=== PATIENT | male | born 1940 | race Caucasian/White ===

== ENCOUNTER 2022-12-09 11:46 | Outpatient (CLI) | payer MEDICARE, SELFPAY ==
--- NOTE | 2022-12-09 13:29 | W.ANESCHARGE ---
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
--- NOTE | 2022-12-09 15:10 | W.ANESCHARGE ---
Anesthesia Charges Start Date/Time Anesthesia Start Date: 12/09/22 Anesthesia Start Time: 13:05 Stop Date/Time Anesthesia Stop Date: 12/09/22 Anesthesia Stop Time: 13:25 Summary Extremes of Age - Over 70 or under 1: MDA
== END 2022-12-09 11:47 | disposition home or self-care (01) ==
LOC: OP CLINIC 11:51
PROVIDERS: PCP Family Medicine; Visit Provider Internal Medicine Gastroenterology
DX: K92.2 Gastrointestinal hemorrhage, unspecified (principal); K57.10 Diverticulosis of small intestine without perforation or abscess without bleeding; K26.4 Chronic or unspecified duodenal ulcer with hemorrhage
CPT/HCPCS: 00731; 43239; 88305; 99100; J2704; J3490

== ENCOUNTER 2024-08-29 07:47 | Emergency (ER) | payer MEDICARE, SELFPAY ==
--- OUTSIDE RECORDS SUMMARY | 2011-05-30 09:10 | XMS_ITS | Continuity of Care Document ---
Author Organization [facility] Address [address] [address] [place] [address] Phone Care Team Providers Care Bag Shaker Name Role Phone Unavailable Unavailable Unavailable Advance Directives Directive Yes / No Effective Date File Name No Information Encounters Encounter Description Practice Location Reason(s) For Visit Diagnoses Date Provider Providers Copied on Encounter [facility], [address] [address], [place], [place], [id number], [place] tel:[phone] [facility] No Information May-2 2201 2 No Information Family History Family Member Type Diagnosis Age At Onset No Information Payers Payer name Insurance type Covered republican ID Authoriza tion(s) No Information Social History Type Description Quantity Date Captured Comments Sex Male Smoking Status No Information Chief Complaint And Reason For Visit No Information Reason For Referral Reason For Referral No Information History Of Present Illness Encounter Date Complaint History Of Prese nt Illness No Information Functional Status Date Functional Assessmen t No Information Instructions Date Instruction Additional Infor mation No Information Assessments Type Assessment Date No Information Patient Care Teams Name Effective Dates (start - stop) Status Members No Information
--- OUTSIDE RECORDS SUMMARY | 2011-05-30 09:10 | XMS_ITS | Continuity of Care Document ---
Author Organization [facility] Address [address] [address] [place] [address] Phone Care Team Providers Care Caterpillar Operator Name Role Phone Unavailable Unavailable Unavailable Advance Directives Directive Yes / No Effective Date File Name No Information Encounters Encounter Description Practice Location Reason(s) For Visit Diagnoses Date Provider Providers Copied on Encounter [facility], [address] [address], [place], [place], [id number], [place] tel:[phone] [facility] No Information May-2 2201 2 No Information Family History Family Member Type Diagnosis Age At Onset No Information Payers Payer name Insurance type Covered constitution party ID Authoriza tion(s) No Information Social History [...]
--- OUTSIDE RECORDS SUMMARY | 2014-09-05 04:05 | XMS_ITS | Continuity of Care Document ---
Author Organization [facility] Address [address], [address] [place] [address] Phone Care Team Providers Care Track Watchman Name Role Phone Chris Puentes MD Unavailable Unavailable Allergies, Adverse Reactions, Alerts Substance Reaction Status Criticality penicillin G Active No Information Medications Medication Instructions Dosage Effective Dates (start - stop) Status Comments Aspir-81 81 mg tablet,delayed release take 1 tablet by oral route every day - Active Procedures Procedure Date Inj Anes Epidur; Lumb/sac 1 Le 15 Epidurography Rad S&i Adverse Events did not occur Patient without preop order for prophyla ctic IV an Inj Anes Epidur; Lumb/sac 1 Le 15 Epidurography Advance Directives Directive Yes / No Effective Date File Name No Information Encounters Encounter Description Practice Location Reason(s) For Visit Diagnoses Date Provider Providers Copied on Encounter [facility], [address], [address], [place], [address], [place] tel:[phone] [facility] No Information 5 Deloris Perez. [address], [place], [place], [address] , [place]. tel:[phone] Referring Provider: Chris Galeano, [address], [place], [address] . tel:[phone] [facility], [address], [place], [place], [id number], [place] tel:[phone] [facility] [place] No Information 5 Puentessagar Perez. [address], [place], [place], [address] , [place]. tel:[phone] Referring Provider: Didi Chavez, [address], [place], [address]. Family History Family Member Type Diagnosis Age At Onset No Information Payers Payer name Insurance type Covered alliance party ID Roxi hua(s) Medicare Part B [place] [id number] [facility] Medicare BL [id number] Social History Type Description Quantity Date Captured Comments Alcohol Use Details 1 beer daily Caffeine Use Details coffee 1 cup per day Tobacco Use Status Occasional cigarette smoker Smoking Status Current some day smoker Smoking Tobacco Use Details Cigarette: No Details Available Cigarette: No Details Available Sex Male Vital Signs Date / Time: Height Weight BMI Pulse Rate Blood Pressure Temperature Respiratory Rate Body Surface Area Head Circumference Head Circ. Percentile Wt./Kenny. Percentile BMI percentile Pulse Ox Inhaled Ox 8:26 AM 88 /min 173/89 mm[Hg] 89 % 8:50 AM 94 /min 174/92 mm[Hg] 99 % 8:56 AM 95 /min 167/96 mm[Hg] 96 % 9:02 AM 88 /min 189/92 mm[Hg] 95 % 9:08 AM 83 /min 151/89 mm[Hg] 97 % Chief Complaint And Reason For Visit No Information Reason For Referral Reason For Referral No Information History Of Present Illness Encounter Date Complaint History Of Prese nt Illness No Information Functional Status Date Functional Assessmen t Pain Score 0/10 Instructions Date Instruction Additional Infor mation No Information Assessments Type Assessment Date No Information Patient Care Teams Name Effective Dates (start - stop) Status Members No Information
--- OUTSIDE RECORDS SUMMARY | 2014-09-05 04:05 | XMS_ITS | Continuity of Care Document ---
Author Organization [facility] Address [address], [address] [place] [address] Phone Care Team Providers Care Reacher Name Role Phone Chris Puentes MD Unavailable [...] Diagnoses Date Provider Providers Copied on Encounter [facility], [address], [address], [place], [address], [place] tel:[phone] [facility] No Information 5 Deloris Perez. [address], [place], [place], [address] , [place]. tel:[phone] Referring Provider: Chris Galeano, [address], [place], [address] . tel:[phone] [facility], [address], [place], [place], [address], [place] tel:[phone] [facility] [address] [place] No Information 5 Puentessagar Perez. [address], [place], [place], [address] , [place]. tel:[phone] Referring Provider: Didi Chavez, [address], [place], [address]. Family History Family Member Type Diagnosis Age At Onset No Information Payers Payer name Insurance type Covered green party ID Roxi hua(s) Medicare Part B [place] [id number] [facility] Medicare BL [id number] Social History Type Description Quantity Date Captured [...]
--- OUTSIDE RECORDS SUMMARY | 2024-03-18 05:45 | XMS_ITS | Encounter Summary ---
Author Name [facility] Organization [facility] Address [address] [place] [address] Support Name Relationship Address Phone RIOS MAYERS Next of Kin [address] [place] [address] LAVERN CORTEZ Emergency Contact [address] [place] [address] Insurance Providers: All historical and current Section Date Range: From patient's date of to the date document was created. This section includes the names of all active insurance providers for the patient. Insurance Provider Type of Coverage Plan Name Start of Policy Coverage End of Policy Coverage Group Number Member ID Insurance Provider's Telephone Number Policy Sevilla's Name Patient's Relationship to Policy Sevilla [facility] MCR (WNR) MEDICARE ADVANTAGE MCR (WNR) Mar 10, 2018 [id number] [phone] BESS MAYERS PATIENT Selected Encounter This section includes the information on record at [place] for the Encounter. Date/Time Encounter Type Encounter Description Reason Provider Source Mar 18, 2024 10:45 AM HEARING AID FITTING/CHECKING AUDIOLOGY ICD-10-CM Z01.118 Encntr for exam of ears and hearing w oth abnormal findings PABLO CASTREJON Encounter Template Text not used by [place] Assessments - Encounter Diagnoses This section includes the primary and secondary diagnoses documented for the Encounter. Date/Time Primary/Secondary Diagnosis Diagnosis Name Provider Source Mar 18, 2024 12:03 PM PRIMARY Encntr for exam of ears and hearing w oth abnormal findings PAOLA CASTREJON [facility] Mar 18, 2024 12:03 PM SECONDARY Encounter for fitting and adjustment of hearing aid PAOLA CASTREJON [facility] Mar 18, 2024 12:03 PM SECONDARY Sensorineural hearing loss, bilateral ELAINEPAOLA DAVIS MICHAELNADEEM Logan [facility] Mar 18, 2024 12:03 PM SECONDARY Tinnitus, bilateral PAOLA CASTREJON [facility] Plan of Treatment: Future Appointments (+ 6 months) and Future Tests (+/- 45 days) The Plan of Treatment section includes future care activities for the patient [facility] This section includes future appointments and future orders which are active, pending or scheduled. Future Appointments This section includes appointments that were scheduled to occur 6 months from the date of the Encounter, up to a maximum of 20 appointments. The data comes from all [place] treatment facilities. Appointment Date/Time Appointment Type Appointme nt Facility Name Apr 15, 2024 10:45 AM AMBULATORY - SURGERY [facility] Social History: Smoking Status (Most current) and Tobacco Use (All prior to encounter date) This section includes the most current, and the historical, smoking and tobacco- related health factors from the [place] facility where the Encounter took place. Current Smoking Status This section includes the most current smoking, or tobacco-related health factor, from the [place] facility where the Encounter took place. Date/Time Current Smoking Status Comment Facil ity Jun 26, 2009 11:49 AM FORMER TOBACCO USER 7Y OR GREATE R [facility] Encounter Notes: All associated encounter notes This section contains the clinical notes associated to the Encounter. Date/Time Encounter Note(s) Provider Source Mar 18, 2024 07:24 AM AUDIOLOGY NOTE: LOCAL TITLE: AUDIOLOGY CLINIC NOTE STANDARD TITLE: AUDIOLOGY NOTE DATE OF NOTE: MAR 18, 2024@07:24 ENTRY DATE: MAR 18, 2024@07:24:19 AUTHOR: XENIA CASTREJON COSIGNER: URGENCY: STATUS: COMPLETED SUBJECT: HEARING EVALUATION DIAGNOSIS: BILATERAL SENSORINEURAL HEARING LOSS, BILATERAL TINNITUS REASON FOR VISIT: THERAPEUTIC: HEARING AID EVALUATION, 60 minutes. was seen in this clinic today for a hearing evaluation. Mulberry is service connected for hearing loss/tinnitus. was unaccompanied today. SUBJECTIVE/HISTORY: Mulberry presented today for an updated hearing evaluation and new hearing aid selection. He noted he had a hearing test completed in January at [facility] by Dr. 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 He noted his hearing has changed gradually over the past few years and also reported a TIA this Summer. Mulberry reported intermittent otalgia deep in both ears, more right, for the past month or so. He was recently seen by ENT at [facility] whom reported no abnormal ear or sinus findings. Mulberry denied aural pressure and drainage, as well as dizziness. He denied a change in his intermittent, bilateral tinnitus. Elected to complete air and bone conduction today and compare to 01/19/2024 test. Hearing aids, right/left, fit 04/28/2018: Make: Resound Model: Linx Quattro 61 Style: Rechargeable EMELY Serial #: [id number] Acoustics: 3MP, encased molds OBJECTIVE/PROCEDURES: AUDIOMETRICS: Air conduction, Bone conduction Transducer: Inserts Reliability: Good *See results via Audiogram display under Tools->Audiology->ROES or see [facility] database. OTOSCOPY: Right: minimal non-occluding cerumen and normal appearing tympanic membrane. Left: minimal non-occluding cerumen and normal appearing tympanic membrane. TYMPANOMETRY: RIGHT EAR: Type A Pressure: Normal Compliance: Normal Volume: Normal LEFT EAR: Type A Pressure: Normal Compliance: Normal Volume: Normal /// Speech testing results are from Dr. Stack's results on 01/19/2024: SPEECH RECOGNITION THRESHOLD (SRT): Spondees Right: 65 dB HL Left: 55 dB HL Pure tone results were consistent with speech national park ranger thresholds. WORD RECOGNITION: Recorded/W-22 word list Right Ear: 60% Level: 95* dB Left Ear: 40% Level: 90* dB /// SUMMARY: Hearing is stable when compared to the previous evaluation completed on 01/19/2024 at [facility] by Dr Stack. RIGHT EAR: Mild sloping to severe sensorineural hearing loss. Type A tympanogram consistent with normal tympanic membrane/middle ear mobility. LEFT EAR: Mild sloping to severe sensorineural hearing loss. Type A tympanogram consistent with normal tympanic membrane/middle ear mobility. ACTION/AMPLIFICATION: - Mulberry was counseled on their type, degree and configuration of hearing loss. - is a good candidate for hearing aid use. - Different styles/technologies were reviewed with consideration given to Mulberry's listening situations and lifestyle needs. - The Mulberry has good vision, memory, and dexterity for hearing aid use. Did not take new earmold impressions because is very happy with the current fit. - Hearing aids ordered: Resound Nexia 60 mRIC R (color: 75, 3MP, embedded molds) Mulberry utilizes and iPhone and has his current aids connected. HEARING AID CHECK/SERVICE/PROGRAMMING : - Hearing aids cleaned and checked. Biologic listening check revealed good sound quality. Filters replaced, microphones brushed. - Aids connected to software and programmed to today's hearing evaluation. Mulberry noted good sound quality. PLAN: - Mulberry will be scheduled for a 60-minute hearing aid fitting appointment. - is in agreement with this plan. Suicide Screen: C-SSRS Screening [place]-Suicide Severity Rating Scale (C-SSRS Screener) 1. Over the past month, have you wished you were or wished you could go to sleep and not wake up? No 2. Over the past month, have you had any actual thoughts of killing yourself? No 3. Over the past month, have you been thinking about how you might do this? Response not required due to responses to other questions. 4. Over the past month, have you had these thoughts and had some intention of acting on them? Response not required due to responses to other questions. 5. Over the past month, have you started to work out or worked out the details of how to kill yourself? Response not required due to responses to other questions. 6. If yes, at any time in the past month did you intend to carry out this plan? Response not required due to responses to other questions. 7. In your lifetime, have you ever done anything, started to do anything, or prepared to do anything to end your life (for example, collected pills, obtained a gun, gave away valuables, went to the roof but didn't jump)? No 8. If YES, was this within the past 3 months? Response not required due to responses to other questions. /lissett/ XENIA CASTREJON Clinical Lab Clerk Signed: 03/18/2024 12:03 XENIA CASTREJON [facility]
--- OUTSIDE RECORDS SUMMARY | 2024-04-15 05:45 | XMS_ITS | Continuity of Care Document ---
Author Name [facility] Organization [facility] Care Team Providers Care Certified Health Education Specialist Name Role Phone [facility] Unavailable Unavailable Problems Combined list of problems from [facility] and [facility] facilities. It does not include entries that were removed or entered in error. Problem Status Onset Date Problem Type Date of Resolution Comments Source Hearing Loss, Partial * (ICD-9-CM 389.9) Active Condition [facility] Insect Stings (ICD-9-CM E905.5/989.5) Active Condition Jun 26, 2009 Entered By: DEEP ROSA Comment: Bee stings-thro at [facility] Psoriasis * (ICD-9-CM 696.1) Active Condition [facility] Tinnitus * (ICD-9-CM 388.30) Active Condition [facility] Diagnosis: ICD-10-CM H90.3 Sensorineural hearing loss, bilateral Active Diagnosis [facility] Diagnosis: ICD-10-CM Z01.118 Encntr for exam of ears and hearing w oth abnormal findings Active Diagnosis [facility] Allergies, Adverse Reactions, Alerts Combined list of allergies from [facility] facilities. It does not include entries that were removed or entered in error. Substance Category Reaction Severity Reaction type Status Date Reported Comments Source PENICILLIN Propensity to adverse reactions to drug (finding) Pharyngeal swelling active 0 [facility] Immunizations Combined list of available immunizations from the Department of [facility] and [facility] facilities. Immunization Series Date Given Administered By Site Reaction Lot Number CVX Code Drug Batch Dumper Status Comments Source NOVEL INFLUENZA-H1N 1-09, ALL FORMULATIONS [address] [facility] PNEUMOCOCCAL, UNSPECIFIED FORMULATION [address] [facility] Encounters Combined list of: 1) Encounters from Department [facility] facilities going backup to the last 18 months, not all [place] inpatient encounters are included; 2) Encounters from the Department of [facility] facilities going backup to 280 months. Location Location Details Encounter Type Encounter Number Reason For Visit Attending Provider ADM Date DC Date Status Disposition Source [facility] HEARING AID FITTING/CH ECKING [id number] Diagnos is: ICD-10- CM Z01.118 Encntr for exam of ears and hearing w oth abnorma l finding Jackson Harris 03/18 [facility] HEARING AID FITTING/CH ECKING [id number] Diagnos is: ICD-10- CM H90.3 Sensori neural hearing loss, bilater Jackson Clancy 04/15 [facility] Social History Combined list of available smoking, tobacco, and other social history from [facility] facilities. Social History Type Response Date Comment Sourc e Tobacco smoking status NHIS FORMER TOBACCO USER 7Y OR GREATER 06/26/2009 [facility]
--- OUTSIDE RECORDS SUMMARY | 2024-04-15 05:45 | XMS_ITS | Encounter Summary ---
Author Name [facility] Organization [facility] Address [address] [place] [address] Support Name Relationship Address Phone RIOS MAYERS Next of Kin [address] [place] [address] LAVERN CORTEZ Emergency Contact [address] [place] [address] Insurance Providers: All historical and [...] Sevilla's Name Patient's Relationship to Policy Sevilla [facility] MCR (WNR) MEDICARE ADVANTAGE MCR (WNR) Mar 10, 2018 [id number] [phone] BESS MAYERS PATIENT Selected Encounter This section includes the information on record at ID for the Encounter. Date/Time Encounter Type Encounter Description Reason Provider Source Apr 15, 2024 10:45 AM HEARING AID FITTING/CHECKIN G AUDIOLOGY ICD-10-CM H90.3 Sensorineural hearing loss, bilateral PAOLA CASTREJON R IHE Encounter Template Text not used by ID Assessments - Encounter Diagnoses This section includes the primary and secondary diagnoses documented for the Encounter. Date/Time Primary/Secondary Diagnosis Diagnosis Name Provider Source Apr 15, 2024 11:32 AM PRIMARY Sensorineural hearing loss, bilateral PAOLA CASTREJON [facility] Apr 15, 2024 11:32 AM SECONDARY Encounter for fitting and adjustment of hearing aid PAOLA CASTREJON [facility] Apr 15, 2024 11:32 AM SECONDARY Tinnitus, bilateral PAOLA CASTREJON [facility] Social History: Smoking Status (Most current) and Tobacco Use (All prior to encounter date) This section includes the most current, and the historical, smoking and tobacco- related health factors from the ID facility where the Encounter took place. Current Smoking Status This section includes the most current smoking, or tobacco-related health factor, from the ID facility where the Encounter took place. Date/Time Current Smoking Status Comment Facil ity Jun 26, 2009 11:49 AM FORMER TOBACCO USER 7Y OR GREATE R [facility] Encounter Notes: All associated encounter notes This section contains the clinical notes associated to the Encounter. Date/Time Encounter Note(s) Provider Source Apr 15, 2024 07:29 AM AUDIOLOGY NOTE: LOCAL TITLE: AUDIOLOGY CLINIC NOTE STANDARD TITLE: AUDIOLOGY NOTE DATE OF NOTE: APR 15, 2024@07:29 ENTRY DATE: APR 15, 2024@07:29:07 AUTHOR: XENIA CASTREJON COSIGNER: URGENCY: STATUS: COMPLETED SUBJECT: HEARING AID FITTING AUDIOLOGY CLINIC NOTE Has ADDENDA DIAGNOSIS: Encounter for Fitting and Adjustment of Hearing Aid, Bilateral Sensorineural Hearing Loss, Bilateral Tinnitus REASON FOR VISIT: Therapeutic - hearing aid fitting, conformity evaluation/real-ear measures, orientation and counseling using a standard curriculum (60 minutes). SUBJECTIVE/HISTORY: is an experienced hearing aid user. Recommended he keep his old hearing aids (see below) as a backup/spare as needed. The back-up's right mold was hanging on by a thread today. Ralph was shown how to replace it, and I will mail a replacement. OBJECTIVE: Hearing aids right/left; Date Fit: 04/15/2024 Make: Resound Model: Nexia MicroRIC-R Style: RICs Serial #: [id number] Acoustics: 3MP, encased molds *Paired to iPhone and vern Back-up aids, right/left, fit 04/28/2018: Make: Resound Model: Linx Quattro 61 Style: Rechargeable EMELY Serial #: [id number] Acoustics: 3MP, encased molds CONFORMITY EVALUATION (VERIFICATION OF HEARING AID FUNCTION): Real Ear Aided Response (REAR) was measured using the SummitIG 2 system TEST BOX (on-ear measures not working for right side, prasad 115). According to the NAL- NL2 fitting method, the patient's hearing aids are meeting target for soft, average, and loud speech. Loudness intolerance was measured using a 90 dB MPO tone sweep and the patient was able to tolerate the output of the hearing devices. The fit was found to be satisfactory. Overall gain decreased bilaterally through 1.5 kHz. Ralph noted an immediate improvement in sound quality and is motivated to wear them more consistently. ACTION: Hearing aids are a good physical fit. Hearing aids were programmed to prescriptive targets, which were derived from the Veterans hearing loss. Veterans subjective impressions were considered while adjusting the hearing aids. The frequency response is set at 100% of target gain. Feedback test was completed and feedback client relationship manager was activated. Volume control enabled Synchronized - right to raise, left to lower We had to updated 's iPhone's firmware but then were able to successfully pair to the hearing aids. Education and counseling was completed regarding streaming capabilities. The snuff drier phone application was reviewed with the . Ralph was counseled on the following: -Full-time hearing aid use and acclimating to amplification -Realistic expectations for hearing aid use -Appropriate communication strategies -Rechargeability -Location and operation of all controls -Proper care and maintenance -Protecting hearing in high noise levels -[employer] [facility] and Call Center contact information and services, including the trial period reported good sound quality and equal balance between ears after adjustments were made. Ralph reported a comfortable fit. demonstrated understanding of the new aids and was able to insert the hearing aids appropriately, as well as manipulate the volume control. Prognosis for success is good given the Ralph's response to the hearing aids. Hearing aids were issued and supplies (GN wax guards) were mailed. PLAN: - New replacement mold ordered for right back-up aid. - will return to clinic as needed for service. - Patient is in agreement with this plan. Aud tech: mail replacement right mold to vet please /es/ XENIA CASTREJON Budget Examiner Signed: 04/15/2024 11:48 04/28/2024 ADDENDUM STATUS: COMPLETED MAILING REPLACEMENT RIGHT ENCASED EARM[place] TO THE ADDRESS ON FILE /es/ HARJINDER Hannon [facility] TUBE SIZER AND CUTTER OPERATOR Signed: 04/28/2024 17:21 /lissett/ STEVENSON AMBRIZ SPRING COVERER Cosigned: 04/29/2024 08:36 XENIA CASTREJON [facility]
--- OUTSIDE RECORDS SUMMARY | 2024-04-15 05:45 | XMS_ITS | Continuity of Care Document ---
Author Name [facility] Organization [facility] Care Team Providers Care Operations Administrative Assistant Name Role Phone [facility] Unavailable Unavailable Problems Combined list of problems from [facility] and [facility] facilities. It does not include entries that were removed or entered in error. Problem Status Onset Date Problem Type Date of Resolution Comments Source Hearing Loss, Partial * (ICD-9-CM 389.9) Active Condition [facility] Insect Stings (ICD-9-CM E905.5/989.5) Active Condition Jun 26, 2009 Entered By: DEEP ROSA Comment: Bee stings-thro at [facility] Psoriasis * (ICD-9-CM 696.1) Active Condition [facility] Tinnitus * (ICD-9-CM 388.30) Active Condition [facility] Diagnosis: ICD-10-CM H90.3 Sensorineural hearing loss, bilateral Active Diagnosis [facility] Diagnosis: ICD-10-CM Z01.118 Encntr for exam of ears and hearing w oth abnormal findings Active Diagnosis [facility] Allergies, Adverse Reactions, Alerts Combined list of allergies from [facility] facilities. It does not include entries that were removed or entered in error. Substance Category Reaction Severity Reaction type Status Date Reported Comments Source PENICILLIN Propensity to adverse reactions to drug (finding) Pharyngeal swelling active 0 [place] [facility] Immunizations Combined list of available immunizations from the Department of [facility] and [facility] facilities. Immunization Series Date Given Administered By Site Reaction Lot Number CVX Code Drug Complaint Investigations Officer Status Comments Source NOVEL INFLUENZA-H1N 1-09, ALL FORMULATIONS [address] [facility] PNEUMOCOCCAL, UNSPECIFIED FORMULATION [address] [facility] Encounters Combined list of: 1) Encounters from Department [facility] facilities going backup to the last 18 months, not all [place] inpatient encounters are included; 2) Encounters from the Department of [facility] facilities going backup to 280 months. Location Location Details Encounter Type Encounter Number Reason For Visit Attending Provider ADM Date DC Date Status Disposition Source [place] [facility] HEARING AID FITTING/CH ECKING [id number] Diagnos is: ICD-10- CM Z01.118 Encntr for exam of ears and hearing w oth abnorma l finding Jackson Harris 03/18 [facility] [place] [facility] HEARING AID FITTING/CH ECKING [id number] Diagnos is: ICD-10- CM H90.3 Sensori neural hearing loss, bilater Jackson Clancy 04/15 [facility] Social History Combined list of available smoking, tobacco, and other social history from [facility] of Defense and Veterans [facility] facilities. Social History Type Response Date Comment Sourc e Tobacco smoking status NHIS FORMER TOBACCO USER 7Y OR GREATER 06/26/2009 [facility]
[2024-08-29] VITALS (24 sets, daily range): BP systolic 149–180; BP diastolic 55–103; PULSE 61–78; RESP 9–37; TEMP 36.4; O2SAT 95–99; BMI 24.1
--- OUTSIDE RECORDS SUMMARY | 2024-08-29 07:50 | XMS_ITS ---
Author Organization [place] Address [address] [place] [address] Care Team Providers Care Woodyard Crane Operator Name Role Phone Wm Banda MD Primary Care Provider + [phone] Tamia Szymanski MD Unavailable Active Problems Patient Care Coordination No te Formatting of this note migh t be different from the original. [email or web address] Problem Noted Date Diagnosed Date Coronary artery disease invo lving [place] band coronary artery of [place] heart without angina pectoris 09/22/2019 Elevated coronary artery calcium score 9 Overview (09/07/2018): Added automatically from request for surgery [id number] History of colonic polyps 11/01/2013 Hyperlipidemia LDL goal <70 11/16/2012 History of prostate cancer 11/16/2012 Gout 09/18/2011 Psoriasis 07/09/2010 Bee sting-induced anaphylaxis 05/12/2009 Current Treatment and Therapy Plans No current plan information found. Past Treatment and Therapy Plans No past plan information found. Lifetime Dose Tracking * Chemical Lifetime Dose Automatic Entry Manual Entr y Total Air Kerma 802 mGy 0 mGy 802 mGy Monico DAP 69,389 mGy-cm2 0 mGy-cm2 69,389 mGy-cm 2 Resolved Problems Problem Noted Date Diagnosed Date Resolved Date Status post coronary angiogram 09/22/2018 09/22/2019 Atypical chest pain 09/07/2018 09/22/19 20 Overview (09/07/2018): Added automatically from request for surgery [id number] Elevated blood pressure read ing without diagnosis of hypertension 09/07/2018 09/22/2019 Low back pain 10/13/2014 06/14/2015 Spinal stenosis of lumbar re gion with neurogenic claudication 10/13/2014 06/14/2015 Hypertension goal BP (blood pressure) < 140/90 11/16/2012 03/20/2015 Palpitations 05/25/2012 11/16/2012 Chest pain 05/24/2012 11/16/2012 Hypertensive urgency 05/24/2012 013 Advanced directives, counseling/discussion 04/01/2011 08/25/2023 Overview (04/03/2015): Advance Care Planning 03/17/2015: Receipt of ACP document: Received: Health Care Directive which was witnessed or notarized on 01/18/2015. Document not previously scanned. Validation form completed and sent with document to be scanned. Code Status reflects choices in most recent ACP document. Confirmed/documented designated decision maker(s). Added by Sweta Mcadams Advance Care Planning 01/11/2015: Receipt of ACP document: Received: Health Care Directive which was witnessed or notarized on 02-05-11. Document previously scanned on 05-15-11. Validation form completed and sent to be scanned. Code Status reflects choices in most recent ACP document. Confirmed/documented designated decision maker(s). Added by Saadia Sim RN Advance Care Planning Liaison with [employer] Advance Care Planning 12/26/2014: Receipt of ACP document: Received: POLST which was signed and dated by provider on 12/26/14. Document not previously scanned. Reviewed for validity as medical order and sent to be scanned. Code Status reflects choices in most recent ACP document. Confirmed/documented designated decision maker(s). Added by Sweta Mcadams Patient states has Advance Directive and will bring in a copy to clinic. 04/01/2011 Elevated BP 05/12/2009 11/16/2012 Hyperlipidemia LDL goal <160 04/19/2009 11/16/2012 Pain in joint, pelvic region and thigh 05/13/2006 11/01/2013 Hyperlipidemia 11/14/2005 05/12/2009 Overview (12/08/2014): Problem list name updated by automated process. Provider to review Prostate cancer 09/22/2020 Overview (10/02/2005): Joelle. Essential hypertension 05/12 Overview (12/08/2014): Problem list name updated by automated process. Provider to review Benign neoplasm of colon Overview (10/02/2005): 2001, repeat was normal in 2004
--- OUTSIDE RECORDS SUMMARY | 2024-08-29 07:50 | XMS_ITS | Encounter Summary ---
Author Organization [facility] Address [address] [place] [address] Care Team Providers Care Bakery Manager Name Role Phone Wm Banda MD Primary Care Provider + [phone] Wm Banda MD Unavailable [phone] Wm Banda MD Unavailable [phone] Sangeetha Mishra APRN [facility] Unavailable [phone] Wm Banda MD Unavailable [phone] Yevgeniy Cervantes MD Unavailable Tamia Szymanski MD Primary Care Provider Tamia Szymanski MD Unavailable Wm Banda MD Primary Care Provider + [phone] Ashely Bob MD Unavailable [phone] Tamia Szymanski MD Unavailable Encounter Details Date Type Department Care Team (Late st Contact Info) Description 12/03/2013 MyC Medical Advice [facility] [address] [place] [address] [place] [address] [address] [facility] [place] [address] Social History Tobacco Use Types Packs/Day Years Used Date Smoking Tobacco: Former Cigarettes Q uit: 03/10/1975 Smokeless Tobacco: Never Comments:about 15 pack years hx Alcohol Use Standard Drinks/Week Comments Yes 11.7 (1 standard drink = 0.6 oz pure alcohol) Sex and Gender Information Value Date Recorded Sex Assigned at Not on file Legal Sex Male 3:10 AM DISPATCHER RADIO Gender Identity Not on file Sexual Orientation Not on file 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 Not on file Not on file documented as of this encounter Plan of Treatment Not on file documented as of this encounter Visit Diagnoses Not on filedocumented in this encounter Additional Health Concerns Infection Onset Date Last Indicated Resolved Time MRSA-Contact Isolation Comment:Vinh, 08/18/2014 08/22/2014 08/22/2014 documented as of this encounter Care Teams Bakery Manager Relationship Specialty Start Date End Date Wm Banda MD PCP - General Family Practice 10/25/13 09/23/21 [place] [address] [place] [address] PCP - Assigned PCP 05/11/17 05/12/18 [place] [address] [place] [address] PCP - General Family Medicine 09/24/21 11/20/22 [place] [address] [place] [address] PCP - General Family Medicine 11/21/22 [place] [address] [place] [address] Assigned PCP 07/05/18 10/05/21 Sangeetha Mishra APRN LEGAL SPECIALIST [address] [place] [address] Assigned PCP 06/14/18 07/04/18 [place] [address] [place] [address] Assigned PCP 05/11/17 06/13/18 Yevgeniy Cervantes MD [address] [facility] [address] [place] [address] Assigned Heart and Vascular Provider 12/31/19 04/02/23 [place] [address] [place] [address] Assigned PCP 10/06/21 04/02/23 [place] [address] [place] [address] Assigned PCP 04/03/23 06/30/23 [place] [address] [place] [address] Assigned PCP 07/01/23 documented as of this encounter
--- OUTSIDE RECORDS SUMMARY | 2024-08-29 07:50 | XMS_ITS | Encounter Summary ---
Author Organization [place] Address [address] [place] [address]. [place] [address] Care Team Providers Care In Tube Conversion Technician Name Role Phone Wm Banda MD Primary Care Provider + [phone] Wm Banda MD Unavailable [phone] Wm Banda MD Unavailable [phone] Sangeetha Mishra APRN [facility] Unavailable [phone] Wm Banda MD Unavailable [phone] Yevgeniy Cervantes MD Unavailable Tamia Szymanski MD Primary Care Provider [phone] Tamia Szymanski MD Unavailable Wm Banda MD Primary Care Provider + [phone] Ashely Bob MD Unavailable [phone] Tamia Szymanski MD Unavailable Reason for Visit * Reason Onset Date Comments MyChart Communication 12/05/2014 Encounter Details Date Type Department Care Team (Latest Contact Info) Description 12/05/2014 [facility] [address] [address] Sherron Rojas APRN [employer] [address] [place] [address] MyChart Communication Social History Tobacco Use Types Packs/Day Years Used Date Smoking Tobacco: Former Cigarettes Q uit: 03/10/1975 Smokeless Tobacco: Never Comments:about 15 pack years hx Alcohol Use Standard Drinks/Week Comments Yes 11.7 (1 standard drink = 0.6 oz pure alcohol) Sex and Gender Information Value Date Recorded Sex Assigned at Not on file Legal Sex Male 3:10 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 Sherron Rojas APRN CNP * Telephone Encounter - Sweta Mcadams RN - 12/06/2014 8:20 AM CDT Please advise on message below Sweta Mcadams RN, BSN documented in this encounter Plan of Treatment Not on file documented as of this encounter Visit Diagnoses Not on filedocumented in this encounter Additional Health Concerns Infection Onset Date Last Indicated Resolved Time MRSA-Contact Isolation Comment:Vinh, 08/18/2014 08/22/2014 08/22/2014 documented as of this encounter Care Teams In Tube Conversion Technician Relationship Specialty Start Date End Date Wm Banda MD PCP - General Family Practice 10/25/13 09/23/21 [place] [address] [place] [address] PCP - Assigned PCP 05/11/17 05/12/18 [place] [address] [place] [address] PCP - General Family Medicine 09/24/21 11/20/22 [place] [address] [place] [address] PCP - General Family Medicine 11/21/22 [place] [address] [place] [address] Assigned PCP 07/05/18 10/05/21 Sangeetha Mishra APRN [facility] [address] [place] [address] Assigned PCP 06/14/18 07/04/18 [place] [address] [place] [address] Assigned PCP 05/11/17 06/13/18 Yevgeniy Cervantes MD [address] [place] [address] [place] [address] Assigned Heart and Vascular Provider 12/31/19 04/02/23 [place] [address] [place] [address] Assigned PCP 10/06/21 04/02/23 [place] [address] [place] [address] Assigned PCP 04/03/23 06/30/23 [place] [address] [place] [address] Assigned PCP 07/01/23 documented as of this encounter
--- OUTSIDE RECORDS SUMMARY | 2024-08-29 07:50 | XMS_ITS | Clinical Summary ---
Author Organization [employer] [facility] Address [address] [place] [address] Care Team Providers Care Casting Tester Name Role Phone Wm Banda MD Primary Care Provider [phone] Allergies Active Allergy Reactions Criticality Noted Date Comments Penicillins Hives,Throat Swelling/Closing High 11/14 Venom-Honey Bee Anaphylaxis High 04/29/2019 Medications betamethasone, augmented dipropianate 0.05% (DIPROLENE AF) 0.05 % cream APPLY TOPICALLY TO BODY TWICE DAILY FOR 2 TO 3 WEEKS THEN NEEDED FOR ITCHING 06/08/19 22 Active cholecalciferol (VITAMIN D3) 1,000 unit tablet Take 1 Tablet by mouth once daily. Active cyanocobalamin (VITAMIN B12) 1,000 mcg tablet Take by mouth. Active EPINEPHrine (EPIPEN) 0.3 mg/0.3 mL auto-injector Inject 0.3 mg intramuscular. 09/23/19 21 Active aspirin chewable 81 mg chewable tabletIndication s:Coronary artery disease involving ione coronary artery of ione heart without angina pectoris Chew 1 Tablet (81 mg) by mouth once daily with a meal. 90 Tablet 3 10/01/19 23 Active sennosides-docus ate (SENOKOT S) (8.6-50 mg) tabletIndication s:Right inguinal hernia Take 1 Tablet by mouth 2 times daily if needed for Constipation. 20 Tablet 12/19/19 23 Active rosuvastatin (CRESTOR) 5 mg tabletIndication s:Coronary artery disease involving ione coronary artery of ione heart without angina pectoris Take 1 Tablet (5 mg) by mouth every 48 hours. 90 Tablet 4 10/21/19 24 Active pantoprazole (PROTONIX) 20 mg tabletIndication s:Upper GI bleed Take 1 Tablet (20 mg) by mouth once daily. 90 Tablet 4 10/21/19 24 Active metoprolol succinate 25 mg Sustained-Releas e tabletIndication s:SOB (shortness of breath),Coronary artery disease involving ione coronary artery of ione heart without angina pectoris Take 1 Tablet (25 mg) by mouth once daily. 90 Tablet 3 08/14/19 25 Active acetaminophen (TYLENOL EXTRA STRGTH) 500 mg tabletIndication s:Right inguinal hernia Take 2 Tablets (1,000 mg) by mouth every 6 hours if needed for Pain. Max acetaminophen dose: 4000mg in 24 hrs. 40 Tablet 12/19/19 23 025 Discontin ued(*Rolanda ent states no longer taking) Active Problems Problem Noted Date Diagnosed Date History of transient ischemic attack (TIA) 10/20 Sensorineural hearing loss (SNHL) of both ears 0 10/21/2023 Hyponatremia 10/21/2023 Carotid stenosis, asymptomatic, bilateral 2023 RBBB (right bundle branch block) 12/16/2022 Upper GI bleed 12/10/2022 Bleeding duodenal ulcer 12/10/2022 Other psoriasis 03/08/2022 Coronary artery disease invo lving ione coronary artery of ione heart without angina pectoris 09/22/2019 Overview (08/10/2024): History of coronary artery disease with multivessel disease without intervention with angiogram 09/2018 on medical management. 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 [address] [facility] [address] [place] [address] Roland Rivera MD Results 08/24/2024 10:13 AM CDT - 08/24/2024 11:59 PM CDT Hospital Encounter [facility] [address] [place] [address] Roland Rivera MD SOB (shortness of breath); Coronary artery disease involving ione coronary artery of ione heart without angina pectoris 08/24/2024 Travel 08/20/2024 Telephone [facility] [address] [place] [address] Roland Rivera MD Prior Authorization (Unsigned Clinical Documentation) 08/16/2024 1:00 PM CDT Ancillary Procedure [facility] [address] [facility] [address] [place] [address] 08/16/2024 Travel 08/13/2024 9:00 AM CDT Office Visit [facility] [address] [facility] [address] [place] [address] Roland Rivera MD Consult (MARY KAY REFERRAL BY Wm Banda MD; Dx: SOB (shortness of breath); Coronary artery disease involving ione coronary artery of ione heart without angina pectoris//pt states he feels good with no cardiac sx - concerned about his increased fatigue doing yard work) 08/12/2024 Travel 08/11/2024 2:00 PM CDT Orders Only [facility] [address] [facility] [address] [place] [address] Lab 08/11/2024 Telephone [facility] [address] [facility] [address] [place] [address] Cardiology, Anw Cardiology Appointment 08/11/2024 Orders Only [facility] [address] [place] [address] Wm Banda MD 1 scan: (1-Ord) 08/10/2024 08/10/2024 11:00 AM CDT Ancillary Procedure [facility] [address] [place] [address] 08/10/2024 10:40 AM CDT Office Visit [facility] [address] [place] [address] Wm Banda MD Fatigue; Pain (Back of head, with rotation); balance 08/10/2024 Travel from Last 3 Months Immunizations Immunization Administration Dates Next Due Hepatitis A, Unspecified 02/28/1997,06/01/1996 Hepatitis B (Adult) 02/28/1997,07/02/1996,1996 Influenza A (H1N1), Inactivated 05/08/2009,04/04 Influenza RIV4 (Age 18+ Year s) PRESERV FREE 01/05/2019 Influenza, High-dose Inactivated 024,01/20/2018,01/29/2017,11/08,12/26/2014,12/03/2013,12/29/2012 Influenza, High-dose Quadriv alent Inactivated 12/10/2022,12/12/2021 Influenza, IIV3 (Age >=3 years) 01/06/20 08,04/29/2007,12/05/2003,01/04 Influenza, Inactivated AIIV4 (Age 65+ Years) Preserv Free 12/09/2019 Pneumococcal Conj 20-valent (Prevnar 20) 09/30/2022 Pneumococcal Poly,23-Valent (Pneumovax) 05/12/2009 Pneumococcal conj 13-Valent (Prevnar 13) 03/17/2015 Pneumococcal, Unspecified 05/08/2009 RSV, Recombinant ADJ Reconst ituted (Arexvy 120MCG/0.5mL) 02/24/2023 Td, Preservative Free (age >= 7 Years) 0 Tdap 09/22/2020,05/12/2009 Tetanus Toxoid 06/01/1996 Zoster (Shingrix-RZV, recombinant) 09/22/2020, Family History Relation Name Status Comments Brother 1 Alive Brother 2 Alive Father Mother Sister 1 Sister 2 Alive Sister 3 Alive Social History Tobacco Use Types Packs/Day Years Used Date Smoking Tobacco: Former Cigarettes Q uit: 03/10/1975 Passive Smoke Exposure: Never Smokeless Tobacco: Never Tobacco Cessation:Counseling Given: Not Answered Alcohol Use Standard Drinks/Week Comments Not Currently 0 (1 standard drink = 0.6 oz pur e alcohol) PHQ-2 Answer Date Recorded PHQ-2 TOTAL SCORE 0 10/21/2023 Social Connections Answer Date Recorded Do you often feel lonely or isolated from those around you? 0 08/10/2024 Financial Resource Strain Answer Date R ecorded Difficulty of Paying Living Expenses 3 08/10/2024 Difficulty of Paying Living Expenses Not on file 08/10/2024 Food Insecurity Answer Date Recorded Do you worry your food will run out before you are able to buy more? 1 08/10/2024 Transportation Needs Answer Date Record ed Does lack of transportation keep you from medica l appointments? 1 08/10/2024 Does lack of transportation keep you from work, meetings or getting things that you need? 1 08/10/2024 Housing Stability Answer Date Recorded What is your housing situation today? 1 08/10/2024 Interpersonal Safety Answer Date Record ed Are you being hit, kicked, p ushed or yelled at (see row info)? No 10/17/2023 Interpersonal Safety Abuse 12 - 18 Not on file 10/17/2023 Interpersonal Safety Ambulatory Vulnerability No t on file 10/17/2023 Utilities Answer Date Recorded Do you have trouble paying f or utilities (for example, heat, electricity, water, phone)? 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 Gender Identity Not on file Sexual Orientation Not on file Obstetrics History Last Filed Vital Signs Vital Sign Reading Time Taken Comments Blood Pressure 128/62 08/13/2024 8:57 AM CDT Pulse 88 08/13/2024 8:57 AM CDT Temperature 36.4 C (97.5 F) 08/10/2024 10:38 AM CDT Respiratory Rate 16 10/17/2023 6:15 PM CDT Oxygen Saturation 98% 08/13/2024 8:57 AM CDT Inhaled Oxygen Concentration - - Weight 80.7 kg (178 lb) 08/13/2024 8:57 AM CDT Height 182.9 cm (6') 08/13/2024 8:57 AM CDT Body Mass Index 24.14 08/13/2024 8:57 AM CDT Plan of Treatment Health Maintenance Due Date Last Done Comments COVID-19 vaccine series ( season) 2024 11/27/2023, 12/12/2021, 06/29/2021, Additional history exists Depression screening for age 12+ 10/20/2024 10/21/2023, 09/30/2022, 04/23/2022 Medicare Wellness for age 65+ 10/21/2024, 09/30/2022, 09/24/2021 (Verified in Care Everywhere or Patient Record) BMI (ht and wt on same day) for age 18+ 08/13/2025 08/13/2024, 08/10/2024, 10/21/2023, Additional history exists Tetanus booster 09/22/2030 09/22/2020, 07/2009, 05/12/2009 Hepatitis B series for 19+ Completed 02/28, 07/02/1996, 06/01/1996 Tdap Completed 09/22/2020, 05/12/2009 Zoster (shingles) series for age 50+ Completed 09/22/2020, 09/22/2019 Pneumococcal series for age 50+ Completed 09/30/2022, 03/17/2015, 05/12/2009, Additional history exists RSV vaccine for adults or Completed 02/24/2023 Influenza Vaccine Completed 11/27/2023, , 01/05/2019, Additional history exists Medical Devices Implanted Type Area Surveillance Supervisor Device Identifier Shelf Expiration Date Model / Serial / Lot Mesh Ventral 2.4x5.4in Lg Bard Soft Pre-Shaped W/Keyhole - [id number] Implanted:Qty : 1 on 12/18/2022 by Raji Rodriguez MD at [facility] Implants Right: Abdomen [employer] 03/06/2027 [id number] / / [id number] Procedures Procedure Name Priority Date/Time Associated Diagnosis Comments PET CT CARDIAC PERFUSION MULTIPLE REST AND STRESS MARY KAY 08/24/2024 12:36 PM CDT SOB (shortness of breath) Coronary artery disease involving ione coronary artery of ione heart without angina pectoris STRESS TEST ONLY PHARMACOLOGICAL W/O IMAGING MARY KAY 08/24/2024 11:50 AM CDT SOB (shortness of breath) Coronary artery disease involving ione coronary artery of ione heart without angina pectoris ECHO TTE COMPLETE WO CONTRAST MARY KAY 08/16/2024 1:42 PM CDT SOB (shortness of breath) Coronary artery disease involving ione coronary artery of ione heart without angina pectoris CA BLOOD COUNT COMPLETE AUTO&AUTO DIFRNTL WBC Routine 08/11/2024 1:53 PM CDT Fatigue, unspecified type LEACH (dyspnea on exertion) TSH WITH REFLEX Routine 08/11/2024 1:52 PM CDT Fatigue, unspecified type VITAMIN B12 Routine 08/11/2024 1:52 PM CDT Fatigue, unspecified type COMP METABOLIC PANEL Routine 08/11/2024 1:52 PM CDT Fatigue, unspecified type XR CHEST 2 VIEWS PA AND LATERAL Routine 08/10/2024 11:29 AM CDT LEACH (dyspnea on exertion) EKG 12 LEAD Routine 08/10/2024 12:00 AM CDT LEACH (dyspnea on exertion) from Last 3 Months Results * PET CT CARDIAC PERFUSION MULTIPLE REST AND STRESS (08/24/2024 12:36 PM CDT) Anatomical Region Laterality Modality Positron Emissio n Tomography (PET) 08/24/2024 11:5 1 AM CDT Narrative 08/24/2024 2:23 PM CDT [address] [place] [address] MYOCARDIAL PERFUSION IMAGING REPORT REST/STRESS GATED PET IMAGING USING CT ATTENUATION CORRECTION. Patient Name: BESS GUAN Gender: Froylan Height: 72 in Weight: 178 lb Study Date: 08/24/2024 11:51:47 AM BSA: 2.03 m : 1940 83 years BMI: 24.14 kg/m Ord. Prov.: ROLAND RIVERA Monitoring Prov.: Teri Vaughn MD Performing Site ANW Clinical History: Dyspnea. Known coronary artery disease. Cardiac Risk Factors: Family history of heart disease and hypercholesterolemia. Other Symptomatology: TIA. Cardiac History: Abnormal ECG RBBB. Beta albino/calcium channel albino/nitrate taken today: No. Caffeine/methylxanthine taken within 12 hrs: No. Chest pain/discomfort at baseline: No. IMPRESSION 1. Myocardial perfusion was abnormal. There is a small mild nontrasmural infarction in the basal-mid inferolateral dejesus. There is a large area of moderate to severe ischemia in the basal, mid, and apical inferior and inferoseptal dejesus. 2. Overall left ventricular systolic function was abnormal with mild regional hypokinesis of the basal and mid inferior and inferolateral dejesus. The stress LVEF was calculated to be 62 %. 3. Stress myocardial blood flow was abnormal at 1.0 ml/min/g and myocardial flow reserve was abnormal at 1.0. 4. Adequate pharmacologic stress test with regadenoson. 5. The pharmacologic stress ECG was nondiagnostic due to conduction abnormalities. 6. Left ventricular cavity size was normal (resting EDV 101 ml). 7. Compared to prior study of 07/17/2018, inferior, inferolateral ischemia is worse. REGADENOSON PET CT MPI PROCEDURE The patient was studied utilizing a same day rest/stress protocol. Gated PET myocardial perfusion imaging was performed at rest, immediately following the intravenous injection of 20.0 mCi of 82 Rubidium. 30 seconds after the 15 second IV regadenoson injection, the patient was injected via IV with 20.0 mCi of 82 Rubidium and gated stress myocardial perfusion imaging was immediately performed. Gated rest & stress tomographic imaging was performed with CT attenuation correction. (CT imaging not of diagnostic quality and is performed for attenuation correction only.) After image acquisition was completed, data was reconstructed in short, horizontal long and vertical long axis views and tomographic slices were generated. - Pharmacologic stress testing was performed with an IV regadenoson dose of 0.4 mg. - Resting heart rate was 70 bpm, peak heart rate was 73 bpm. - Resting blood pressure was 155 mmHg/65 mmHg; peak blood pressure was 155 mmHg/50 mmHg. - The patient developed symptoms which included shortness of breath. FINDINGS Baseline ECG - The baseline ECG was abnormal with sinus rhythm and IVCD. - There were no repolarization abnormalities. - There was no atrial or ventricular ectopy. Stress ECG - The pharmacologic stress ECG was nondiagnostic due to conditionally abnormal. - Stress induced arrhythmia included occasional PVCs and PACs. - Repolarization was unchanged from baseline. Imaging - PET images demonstrated a large reversible perfusion abnormality of moderate to severe intensity in the basal, mid, and apical inferior and inferoseptal dejesus consistent with ischemia. - No other fixed or reversible perfusion defects were identified. - Computer processed gated imaging revealed normal left ventricular size with a resting EDV of 101 ml, ESV of 40 ml and calculated LVEF of 60 % at rest, increasing to 62 % during stress. TID ratio of 1.21. (Lab normals: LVEF >50%, LV Size <150 ml). - Gated PET imaging demonstrated mild regional hypokinesis of the basal and mid inferior and inferolateral dejesus. - No other wall motion abnormalities were identified. - Stress myocardial blood flow was abnormal at 1.0 ml/min/g and myocardial flow reserve was abnormal at 1.0. - No right ventricular abnormalities were identified. - There was no evidence of abnormal lung or extracardiac activity (CT imaging not of diagnostic quality and is performed for attenuation correction only.). - Coronary calcium seen on review of the attenuation correction CT images. - Risk/extent of ischemia per ACC Noninvasive Risk Stratification Guideline: HIGH RISK. This study was interpreted and electronically signed by Martin Landrum MD on 08/24/2024 2:23:21 PM. Performed by an [facility] Nuclear/PET Accredited Facility Final Procedure Note Martin Landrum MD - 08/24/2024 [address] [place] [address] MYOCARDIAL PERFUSION IMAGING REPORT REST/STRESS GATED PET IMAGING USING CT ATTENUATION CORRECTION. Patient Name: BESS GUAN Gender: Froylan Height: 72 in Weight: 178 lb Study Date: 08/24/2024 11:51:47 AM BSA: 2.03 m : 1940 83 years BMI: 24.14 kg/m Ord. Prov.: ROLAND RIVERA Monitoring Prov.: Teri Vaughn MD Performing Site ANW Clinical History: Dyspnea. Known coronary artery disease. Cardiac Risk Factors: Family history of heart disease andhypercholesterolemia. Other Symptomatology: TIA. Cardiac History: Abnormal ECG RBBB. Beta albino/calcium channel albino/nitrate taken today: No. Caffeine/methylxanthine taken within 12 hrs: No. Chest pain/discomfort at baseline: No. IMPRESSION 1. Myocardial perfusion was abnormal. There is a small mild nontrasmuralinfarction in the basal-mid inferolateral dejesus. There is a large area ofmoderate to severe ischemia in the basal, mid, and apical inferior andinferoseptal dejesus. 2. Overall left ventricular systolic function was abnormal with mildregional hypokinesis of the basal and mid inferior and inferolateralwalls. The stress LVEF was calculated to be 62 %. 3. Stress myocardial blood flow was abnormal at 1.0 ml/min/g andmyocardial flow reserve was abnormal at 1.0. 4. Adequate pharmacologic stress test with regadenoson. 5. The pharmacologic stress ECG was nondiagnostic due to conductionabnormalities. 6. Left ventricular cavity size was normal (resting EDV 101 ml). 7. Compared to prior study of 07/17/2018, inferior, inferolateral ischemiais worse. REGADENOSON PET CT MPI PROCEDURE The patient was studied utilizing a same day rest/stress protocol. GatedPET myocardial perfusion imaging was performed at rest, immediatelyfollowing the intravenous injection of 20.0 mCi of 82 Rubidium. 30 secondsafter the 15 second IV regadenoson injection, the patient was injected viaIV with 20.0 mCi of 82 Rubidium and gated stress myocardial perfusionimaging was immediately performed. Gated rest & stress tomographic imagingwas performed with CT attenuation correction. (CT imaging not ofdiagnostic quality and is performed for attenuation correction only.)After image acquisition was completed, data was reconstructed in short,horizontal long and vertical long axis views and tomographic slices weregenerated. - Pharmacologic stress testing was performed with an IV regadenoson doseof 0.4 mg. - Resting heart rate was 70 bpm, peak heart rate was 73 bpm. - Resting blood pressure was 155 mmHg/65 mmHg; peak blood pressure fej554 mmHg/50 mmHg. - The patient developed symptoms which included shortness of breath. FINDINGS Baseline ECG - The baseline ECG was abnormal with sinus rhythm and IVCD. - There were no repolarization abnormalities. - There was no atrial or ventricular ectopy. Stress ECG - The pharmacologic stress ECG was nondiagnostic due to conditionallyabnormal. - Stress induced arrhythmia included occasional PVCs and PACs. - Repolarization was unchanged from baseline. Imaging - PET images demonstrated a large reversible perfusion abnormality ofmoderate to severe intensity in the basal, mid, and apical inferior andinferoseptal dejesus consistent with ischemia. - No other fixed or reversible perfusion defects were identified. - Computer processed gated imaging revealed normal left ventricular sizewith a resting EDV of 101 ml, ESV of 40 ml and calculated LVEF of 60 % at rest, increasing to 62 % during stress. TID ratio of 1.21. (Lab normals: LVEF>50%, LV Size <150 ml). - Gated PET imaging demonstrated mild regional hypokinesis of the basaland mid inferior and inferolateral dejesus. - No other wall motion abnormalities were identified. - Stress myocardial blood flow was abnormal at 1.0 ml/min/g and myocardialflow reserve was abnormal at 1.0. - No right ventricular abnormalities were identified. - There was no evidence of abnormal lung or extracardiac activity (CTimaging not of diagnostic quality and is performed for attenuation correctiononly.). - Coronary calcium seen on review of the attenuation correction CTimages. - Risk/extent of ischemia per ACC Noninvasive Risk StratificationGuideline: HIGH RISK. This study was interpreted and electronically signed by Martin Landrum MD on08/24/2024 2:23:21 PM. Performed by an [facility] Nuclear/PET Accredited Facility Final Roland Rivera MD PET Final Res ult * STRESS TEST ONLY PHARMACOLOGICAL W/O IMAGING (08/24/2024 11:50 AM CDT) Tamir Navarrete - 08/24/2024 11:50 AM CDT The result for this exam is either scanned and attached to this order or are included in the ordering provider's NOTES from the patient's Office Visit or Surgical procedure from this date. Roladn Rivera MD STRESS Final Res ult * ECHO TTE COMPLETE WO CONTRAST (08/16/2024 1:42 PM CDT) AORTIC VALVE MEAN PG 7 mmHg EJECTION FRACTION 56 % PEAK TR VELOCITY 3.0 m/s LVEDD 4.1 cm MITRAL VALVE MR ERO 6 mm2 EJECTION FRACTION 55 - 60% Anatomical Region Laterality Modality Ultrasound 08/16/2024 12:5 7 PM CDT Narrative 08/16/2024 3:13 PM CDT ECHOCARDIOGRAM BESS GUAN : 1940 83 years Study Date: 08/16/2024 12:57:47 PM Gender: M BP: 150/74 mmHg Height: 182.88 cm BSA: 2.01 m Weight: 79.38 kg Tech: ISABEL Referring MD: ROLAND RIVERA Site: [facility] [place] Location: [facility] Patient Location: Outpatient. Procedure: 2D, Color Doppler and Spectral Doppler. Indication for study: SOB (shortness of breath) Coronary artery disease involving ione coronary artery of ione heart without angina pectoris Cardiac Rhythm: With premature ventricular contractions and normal sinus.Study quality: Good. Final Impressions: 1. Normal LV size, normal wall thickness, normal global systolic function with an estimated EF of 55 - 60%. Basal to mid inferior wall hypokinesis. 2. Right ventricular cavity size is normal, global systolic RV function is normal. 3. Mitral annular calcfication present with mild mitral stenosis. Mean gradient of 5.0 mmHg at a heart rate of 62 BPM. Chamber Sizes and Function Normal left ventricular size, normal wall thickness, normal global systolic function with an estimated EF of 55 - 60%. Left atrial size is normal. Left atrial pressure is normal. Right ventricular cavity size is normal, global systolic RV function is normal. RV wall thickness is normal. The right atrium is normal. Right atrial volume index is 24 ml/m . Right atrial area is 17 cm . The pulmonary artery is of normal size and origin. The sinus of Valsalva is normal sized. The ascending aorta is normal sized. The inferior wall is hypokinetic. Valves, RV Pressures and Diastolic Function The aortic valve is calcified, no stenosis and no regurgitation. The mitral valve is sclerotic, mild mitral regurgitation. Mitral annular calcification is present. A mildly increased gradient of 5.0 mmHg at a heart rate of 62 is calculated across the mitral valve using continuous Doppler examination. Indeterminate pattern of LV diastolic filling. The tricuspid valve is normal in structure, trace tricuspid regurgitation. The tricuspid regurgitant velocity is 3.0 m/s, the estimated right ventricular systolic pressure is 36 mmHg plus right atrial pressure. The pulmonic valve is normal. Trace pulmonary regurgitation. Masses, Effusion, Shunts There is no pericardial effusion. The inferior vena cava is normal sized, respiratory size variation greater than 50%. No left to right shunting was detected by limited color flow Doppler interrogation of the interatrial septum. MEASUREMENTS AND CALCULATIONS 2-D Measurements and LV Function: LVID (d) 4.1 cm LV FS% (2D) 20 % LVID (s) 3.3 cm LVOT diameter 2.2 cm IVS (d) 1.1 cm HR 63 bpm LVPW (d) 1.0 cm LA Vol index 33 ml/m2 Ao Sinus 3.6 cm RA Vol index 24 ml/m2 Ao Sinus ULN 4.2 cm * RA area 17 cm Asc Ao 3.7 cm RV Basal Diam 3.8 cm Asc Ao ULN 4.4 cm * RV Mid Diam 3.0 cm LA 4.3 cm * Input age outside of range, reported values correspond to Age = 79 Diastology: Mitral Tissue Doppler E Peak 1.2 m/s e', Septum 0.08 m/s A Peak 1.6 m/s e', Lateral 0.10 m/s E/A 0.8 E/e' Average 13.77 DT 393 msec Aortic Valve: Vmax 1.8 m/s BARBARA (V) 1.96 cm VTI 0.40 m BARBARA (I) 2.05 cm LVOT V max 0.9 m/s Max PG 13 mmHg LVOT VTI 0.22 m Mean PG 7 mmHg SV 82 ml Dim Index 0.54 SV index 41 ml/m CO 5.2 l/min CI 2.6 l/min/m Mitral Valve: MVA 1.9 cm MR ERO 0.06 cm MV P 1/2 114 msec MR Vol. 12 ml MV Mean G 5 mmHg MR TVI 1.92 m Tricuspid Valve and estimated PA pressures: TR Vmax 3.0 m/s TAPSE 2.0 cm TR maxG 36 mmHg . This study was interpreted by an [facility] accredited facility. Final Procedure Note Chilo Guardado MD - 08/16/2024 ECHOCARDIOGRAM BESS Daiana GUAN : 1940 83 years Study Date: 08/16/2024 12:57:47 PM Gender: M BP: 150/74 mmHg Height: 182.88 cm BSA: 2.01 m Weight: 79.38 kg Tech: ISABEL Referring MD: ROLAND RIVERA Site: [facility] Reading Location: [facility] Patient Location: Outpatient. Procedure: 2D, Color Doppler and Spectral Doppler. Indication for study: SOB (shortness of breath) Coronary artery disease involving ione coronary artery of ione heartwithout angina pectoris Cardiac Rhythm: With premature ventricular contractions and normalsinus.Study quality: Good. Final Impressions: 1. Normal LV size, normal wall thickness, normal global systolic functionwith an estimated EF of 55 - 60%. Basal to mid inferior wallhypokinesis. 2. Right ventricular cavity size is normal, global systolic RV functionis normal. 3. Mitral annular calcfication present with mild mitral stenosis. Meangradient of 5.0 mmHg at a heart rate of 62 BPM. Chamber Sizes and Function Normal left ventricular size, normal wall thickness, normal globalsystolic function with an estimated EF of 55 - 60%. Left atrial size isnormal. Left atrial pressure is normal. Right ventricular cavity size isnormal, global systolic RV function is normal. RV wall thickness isnormal. The right atrium is normal. Right atrial volume index is 24ml/m . Right atrial area is 17 cm . The pulmonary artery is of normalsize and origin. The sinus of Valsalva is normal sized. The ascendingaorta is normal sized. The inferior wall is hypokinetic. Valves, RV Pressures and Diastolic Function The aortic valve is calcified, no stenosis and no regurgitation. Themitral valve is sclerotic, mild mitral regurgitation. Mitral annularcalcification is present. A mildly increased gradient of 5.0 mmHg at aheart rate of 62 is calculated across the mitral valve using continuousDoppler examination. Indeterminate pattern of LV diastolic filling. The tricuspid valve isnormal in structure, trace tricuspid regurgitation. The tricuspidregurgitant velocity is 3.0 m/s, the estimated right ventricular systolicpressure is 36 mmHg plus right atrial pressure. The pulmonic valve isnormal. Trace pulmonary regurgitation. Masses, Effusion, Shunts There is no pericardial effusion. The inferior vena cava is normal sized,respiratory size variation greater than 50%. No left to right shunting wasdetected by limited color flow Doppler interrogation of the interatrialseptum. MEASUREMENTS AND CALCULATIONS 2-D Measurements and LV Function: LVID (d) 4.1 cm LV FS% (2D) 20% LVID (s) 3.3 cm LVOT diameter2.2 cm IVS (d) 1.1 cm HR 63bpm LVPW (d) 1.0 cm LA Vol index 33ml/m2 Ao Sinus 3.6 cm RA Vol index 24ml/m2 Ao Sinus ULN 4.2 cm * RA area 17cm Asc Ao 3.7 cm RV Basal Diam3.8 cm Asc Ao ULN 4.4 cm * RV Mid Diam3.0 cm LA 4.3 cm * Input age outside of range, reported values correspond to Age = 79 Diastology: Mitral Tissue Doppler E Peak 1.2 m/s e', Septum 0.08 m/s A Peak 1.6 m/s e', Lateral 0.10 m/s E/A 0.8 E/e' Average 13.77 DT 393 msec Aortic Valve: Vmax 1.8 m/s BARBARA (V) 1.96 cm VTI 0.40 m BARBARA (I) 2.05 cm LVOT V max 0.9 m/s Max PG 13 mmHg LVOT VTI 0.22 m Mean PG 7 mmHg SV 82 ml Dim Index 0.54 SV index 41 ml/m CO 5.2 l/min CI 2.6 l/min/m Mitral Valve: MVA 1.9 cm MR ERO 0.06 cm MV P 1/2 114 msec MR Vol. 12 ml MV Mean G 5 mmHg MR TVI 1.92 m Tricuspid Valve and estimated PA pressures: TR Vmax 3.0 m/s TAPSE 2.0 cm TR maxG 36 mmHg . This study was interpreted by an [facility] accredited facility. Final Roland Rivera MD ECHO ORD Final Res ult * CBC AND DIFFERENTIAL (08/11/2024 1:53 PM CDT) WHITE BLOOD CELL COUNT 8.8 3.8 - 10.8 Thousand/u L [facility] ( RED BLOOD CELL COUNT 4.45 4.20 - 5.80 Million/uL [facility] ( HEMOGLOBIN 14.3 13.2 - 17.1 g/dL [facility] ( HEMATOCRIT 42.0 38.5 - 50.0 % [facility] ( MCV 94.4 80.0 - 100.0 fL [facility] ( MCH 32.1 27.0 - 33.0 pg [facility] ( MCHC 34.0 32.0 - 36.0 g/dL [facility] ( Comment: For adults, a slight decrease in the calculated MCHC value (in the range of 30 to 32 g/dL) is most likely not clinically significant; however, it should be interpreted with caution in correlation with other red cell parameters and the patient's clinical condition. RDW 12.5 11.0 - 15.0 % [facility] ( PLATELET COUNT 232 140 - 400 Thousand/u L [facility] ( MPV 10.3 7.5 - 12.5 fL [facility] ( ABSOLUTE NEUTROPHILS 5,887 1,500 - 7,800 cells/uL [facility] ( ABSOLUTE LYMPHOCYTES 1,830 850 - 3,900 cells/uL [facility] ( ABSOLUTE MONOCYTES 906 200 - 950 cells/uL [facility] ( ABSOLUTE EOSINOPHILS 150 15 - 500 cells/uL [facility] ( ABSOLUTE BASOPHILS 26 0 - 200 cells/uL [facility] ( NEUTROPHILS 66.9 % [facility] ( LYMPHOCYTES 20.8 % [facility] ( MONOCYTES 10.3 % [facility] ( EOSINOPHILS 1.7 % [facility] ( BASOPHILS 0.3 % [facility] ( Blood BLOOD SPECIMEN / Unknown 08/11/2024 1:53 PM CDT 08/11/2024 1:53 PM CDT Narrative [facility] - 08/11/2024 2:54 PM CDT SPLIT 08/11/2024 FROM [id number] Wm Banda MD HEMATOLOGY Final Result Performing Organization Address City/[facility]/ZIP Co de Phone Number [facility] [address] [place] [address], [facility] ( [address] [place] [address] * TSH WITH REFLEX (08/11/2024 1:52 PM CDT) Pathologist [facility] TSH W/REFLEX TO FT4 2.30 0.40 - 4.50 mIU/L [facility] Blood BLOOD SPECIMEN / Unknown 08/11/2024 1:52 PM CDT 08/11/2024 1:52 PM CDT Narrative [facility] - 08/12/2024 5:06 AM CDT MULTIPLE TESTING PRIORITIES; ROUTINE TESTING TO FOLLOW. Wm Banda MD CHEMISTRY Final Result [facility] [address] [place] [address], [place] [phone] [facility] [address] [place] [address] * VITAMIN B12 (08/11/2024 1:52 PM CDT) Pathologist [facility] VITAMIN B12 592 200 - 1,100 pg/mL [facility] Blood BLOOD SPECIMEN / Unknown 08/11/2024 1:52 PM CDT 08/11/2024 1:52 PM CDT Narrative [facility] - 08/12/2024 5:06 AM CDT MULTIPLE TESTING PRIORITIES; ROUTINE TESTING TO FOLLOW. us Wm Banda MD CHEMISTRY Final Result [facility] [address] [place] [address], [facility] [address] [place] [address] * (ABNORMAL) COMP METABOLIC PANEL (08/11/2024 1:52 PM CDT) Pathologist [facility] GLUCOSE 97 65 - 99 mg/dL [facility] Comment: Fasting reference interval UREA NITROGEN (BUN) 13 7 - 25 mg/dL [facility] CREATININE 0.84 0.70 - 1.22 mg/dL [facility] EGFR 86 > OR = 60 mL/min/1. 73m2 [facility] BUN/CREATININE RATIO SEE NOTE: 6 - 22 (calc) [facility] Comment: Not Reported: BUN and Creatinine are within reference range. SODIUM 133(L) 135 - 146 mmol/L [facility] POTASSIUM 5.1 3.5 - 5.3 mmol/L [facility] CHLORIDE 98 98 - 110 mmol/L [facility] CARBON DIOXIDE 28 20 - 32 mmol/L [facility] CALCIUM 9.3 8.6 - 10.3 mg/dL [facility] PROTEIN, TOTAL 6.7 6.1 - 8.1 g/dL [facility] ALBUMIN 4.3 3.6 - 5.1 g/dL [facility] GLOBULIN 2.4 1.9 - 3.7 g/dL (calc) [facility] ALBUMIN/GLOBULIN RATIO 1.8 1.0 - 2.5 (calc) [facility] BILIRUBIN, TOTAL 1.9(H) 0.2 - 1.2 mg/dL [facility] ALKALINE PHOSPHATASE 55 35 - 144 U/L [facility] AST 17 10 - 35 U/L [facility] ALT 10 9 - 46 U/L [facility] Blood BLOOD SPECIMEN / Unknown 08/11/2024 1:52 PM CDT 08/11/2024 1:52 PM CDT Narrative [facility] - 08/12/2024 5:21 AM CDT MULTIPLE TESTING PRIORITIES; ROUTINE TESTING TO FOLLOW. us Wm Banda MD CHEMISTRY Final Result [employer] [facility] [address] [place] [address], [facility] [address] [place] [address] * XR CHEST 2 VIEWS PA AND LATERAL (08/10/2024 11:29 AM CDT) Anatomical Region Laterality Modality CHEST, THORAX, Lung, HEART Compu [facility]ian Radiography 08/11/2024 8:00 PM CDT Impressions 08/11/2024 8:00 PM CDT 1. No change in elevation of the left hemidiaphragm. There is mild left basilar atelectasis. 2. Right lung clear. Dictated by Daquan Trivedi MD @ 08/11/2024 8:00:36 PM (Electronically Signed) Narrative 08/11/2024 8:00 PM CDT For Patients: As a result of the 21st Century Cures Act, medical imaging exams and procedure reports are released immediately into your electronic medical record. You may view this report before your referring provider. If you have questions, please contact your health care provider. HISTORY: Dyspnea on exertion. TECHNIQUE: Two views of the chest. COMPARISON: 03/08/2022. FINDINGS: No change in elevation of left hemidiaphragm. There is mild left basilar atelectasis. Calcified granuloma within the left lung is unchanged. The right lung appears clear. There is no pneumothorax. Stable heart size. No pulmonary vascular redistribution. Degenerative changes of the spine. Procedure Note Daquan Trivedi MD - 08/11/2024 For Patients: As a result of the Cures Act, medical imagingexams and procedure reports are released immediately into your electronicmedical record. You may view this report before your referring provider.If you have questions, please contact your health care provider. HISTORY: Dyspnea on exertion. TECHNIQUE: Two views of the chest. COMPARISON: 03/08/2022. FINDINGS: No change in elevation of left hemidiaphragm. There is mild left basilaratelectasis. Calcified granuloma within the left lung is unchanged. Theright lung appears clear. There is no pneumothorax. Stable heart size. Nopulmonary vascular redistribution. Degenerative changes of the spine. IMPRESSION: 1. No change in elevation of the left hemidiaphragm. There is mild leftbasilar atelectasis. 2. Right lung clear. Dictated by Daquan Trivedi MD @ 08/11/2024 8:00:36 PM (Electronically Signed) Wm Banda MD GENERAL IMAGING Final Result * EKG 12 LEAD (08/10/2024 12:00 AM CDT) us Wm Banda MD EKG ORD Final Result from Last 3 Months Additional Health Concerns Infection Onset Date Last Indicated MRSA Clearance Comment:Infection Control Note: Hx of MRSA, surveillance criteria met, no need for further testing or isolation precautions. Do not delete or resolve the Infection Flag. Added from external infection. 08/22/2014 Insurance BLUE CROSS MEDICARE ADVANTAGE MR MEDICARE PART A HB ONLY BLUE CROSS MEDICARE ADVANTAGE MR Advance Directives * Full Code (Latest Code Status on File) Date Activated Date Inactivated Comments 12/18/2022 10:18 AM 12/18/2022 1:38 PM Question Answer Comments Code Status Discussion: Reviewed Preferences * Full Code Date Activated Date Inactivated Comments 12/18/2022 5:53 AM 12/18/2022 10:18 AM Question Answer Comments Code Status Discussion: Not Discussed Care Teams Casting Tester Relationship Specialty [place] [address] [place] [address] PCP - General Family Practice 03/08/22
--- OUTSIDE RECORDS SUMMARY | 2024-08-29 07:50 | XMS_ITS | Encounter Summary ---
Author Organization [facility] Address [address] [place] [address]. [place] [address] Care Team Providers Care Pencils Washer Name Role Phone Wm Banda MD Primary Care Provider + [phone] Wm Banda MD Unavailable [phone] Wm Banda MD Unavailable [phone] Sangeetha Mishra APRN EXTERNAL GRINDER TOOL Unavailable [phone] Wm Banda MD Unavailable [phone] Yevgeniy Cervantes MD Unavailable Tamia Szymanski MD Primary Care Provider [phone] Tamia Szymanski MD Unavailable Wm Banda MD Primary Care Provider + [phone] Ashely Bob MD Unavailable [phone] Tamia Szymanski MD Unavailable Encounter Details Date Type Department Care Team (Late st Contact Info) Description 08/24/2014 MyC Medical Advice [facility] [address] [place] [address] Sherron Rojas APRN EXTERNAL GRINDER TOOL [address] [place] [address] Social History Tobacco Use Types Packs/Day Years Used Date Smoking Tobacco: Former Cigarettes Q uit: 03/10/1975 Smokeless Tobacco: Never Comments:about 15 pack years hx Alcohol Use Standard Drinks/Week Comments Yes 11.7 (1 standard drink = 0.6 oz pure alcohol) Sex and Gender Information Value Date Recorded Sex Assigned at Not on file 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 Gender Identity Not on file Sexual Orientation Not on file 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 Not on file Not on file documented as of this encounter Plan of Treatment Not on file documented as of this encounter Visit Diagnoses Not on filedocumented in this encounter Additional Health Concerns Infection Onset Date Last Indicated Resolved Time MRSA-Contact Isolation Comment:Vinh, 08/18/2014 08/22/2014 08/22/2014 documented as of this encounter Care Teams Pencils Washer Relationship Specialty Start Date End Date Wm Banda MD PCP - General Family Practice 10/25/13 09/23/21 [place] [address] [place] [address] PCP - Assigned PCP 05/11/17 05/12/18 [place] [address] [place] [address] PCP - General Family Medicine 09/24/21 11/20/22 [place] [address] [place] [address] PCP - General Family Medicine 11/21/22 [place] [address] [place] [address] Assigned PCP 07/05/18 10/05/21 Sangeetha Mishra APRN EXTERNAL GRINDER TOOL [address] [place] [address] Assigned PCP 06/14/18 07/04/18 [place] [address] [place] [address] Assigned PCP 05/11/17 06/13/18 Yevgeniy Cervantes MD [address] [facility] [address] [place] [address] Assigned Heart and Vascular Provider 12/31/19 04/02/23 [place] [address] [place] [address] Assigned PCP 10/06/21 04/02/23 [place] [address] [place] [address] Assigned PCP 04/03/23 06/30/23 [place] [address] [place] [address] Assigned PCP 07/01/23 documented as of this encounter
--- OUTSIDE RECORDS SUMMARY | 2024-08-29 07:50 | XMS_ITS | Encounter Summary ---
Author Organization [facility] Address [address] [place] [address] Care Team Providers Care Semiconductor Wafers Etch Operator Name Role Phone Wm Banda MD Primary Care Provider + [phone] Wm Banda MD Unavailable [phone] Yevgeniy Cervantes MD Unavailable Tamia Szymanski MD Primary Care Provider [phone] Tamia Szymanski MD Unavailable Wm Banda MD Primary Care Provider + [phone] Ashely Bob MD Unavailable [phone] Tamia Szymanski MD Unavailable Encounter Details Date Type Department Care Team (Late st Contact Info) Description 08/24/2021 MyC Medical Advice [facility] [address] [place] [phone] Becky Rivas Social History Tobacco Use Types Packs/Day Years Used Date Smoking Tobacco: Former Cigarettes Q uit: 03/10/1975 Smokeless Tobacco: Never Comments:about 15 pack years hx Alcohol Use Standard Drinks/Week Comments No 14 (1 standard drink = 0.6 oz pu re alcohol) PHQ-2 Answer Date Recorded PHQ-2 Score 0 09/22/2020 Sex and Gender Information Value Date Recorded Sex Assigned at Not on file 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 No / Unsure 08/27/2021 11:56 AM CDT documented as of this encounter Plan of Treatment Not on file documented as of this encounter Visit Diagnoses Not on filedocumented in this encounter Additional Health Concerns Infection Onset Date Last Indicated Resolved Time MRSA-Contact Isolation Comment:Vinh, 08/18/2014 08/22/2014 08/22/2014 documented as of this encounter Care Teams Semiconductor Wafers Etch Operator Relationship Specialty Start Date End Date Wm Banda MD PCP - General Family Practice 10/25/13 09/23/21 [place] [address] [place] [address] PCP - General Family Medicine 09/24/21 11/20/22 [place] [address] [place] [address] PCP - General Family Medicine 11/21/22 [place] [address] [place] [address] Assigned PCP 07/05/18 10/05/21 Yevgeniy Cervantes MD [address] [place] [address] Assigned Heart and Vascular Provider 12/31/19 04/02/23 [place] [address] [place] [address] Assigned PCP 10/06/21 04/02/23 [place] [address] [place] [address] Assigned PCP 04/03/23 06/30/23 [place] [address] [place] [address] Assigned PCP 07/01/23 documented as of this encounter
--- OUTSIDE RECORDS SUMMARY | 2024-08-29 07:50 | XMS_ITS | Encounter Summary ---
Author Organization [facility] Address [address] [place] [address] Care Team Providers Care Microwave Engineer Name Role Phone Stephen Ureña MD Primary Care Provider Wm Banda MD Primary Care Provider [phone] Wm Banda MD Unavailable [phone] Wm Banda MD Unavailable [phone] Sangeetha Mishra APRN [facility] Unavailable [phone] Wm Banda MD Unavailable [phone] Yevgeniy Cervantes MD Unavailable Tamia Szymanski MD Primary Care Provider Tamia Szymanski MD Unavailable Wm Banda MD Primary Care Provider [phone] Ashely Bob MD Unavailable [phone] Tamia Szymanski MD Unavailable Encounter Details Date Type Department Care Team (Late st Contact Info) Description 11/12/2009 [facility] [place] [place] Medical Advice [facility] [id number] [place] [phone] Stephen Ureña MD [address] [place] [address] Social History Tobacco Use Types Packs/Day Years Used Date Smoking Tobacco: Former Cigarettes Q uit: 03/10/1975 Comments:about 15 pack years hx Alcohol Use Standard Drinks/Week Comments Yes 33.3 (1 standard drink = 0.6 oz pure alcohol) Sex and Gender Information Value Date Recorded Sex Assigned at Not on file 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 Gender Identity Not on file Sexual Orientation Not on file 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 Not on file Not on file documented as of this encounter Plan of Treatment Not on file documented as of this encounter Visit Diagnoses Not on filedocumented in this encounter Additional Health Concerns Infection Onset Date Last Indicated Resolved Time MRSA-Contact Isolation Comment:Vinh, 08/18/2014 08/22/2014 08/22/2014 documented as of this encounter Care Teams Microwave Engineer Relationship Specialty Start Date End Date Stephen Ureña MD PCP - General 11/14/04 10/24/13 Wm Banda MD PCP - General Family Practice 10/25/13 09/23/21 [place] [address] [place] [address] PCP - Assigned PCP 05/11/17 05/12/18 [place] [address] [place] [address] PCP - General Family Medicine 09/24/21 11/20/22 [place] [address] [place] [address] PCP - General Family Medicine 11/21/22 [place] [address] [place] [address] Assigned PCP 07/05/18 10/05/21 Sangeetha Mishra APRN [facility] [address] [place] [address] Assigned PCP 06/14/18 07/04/18 [place] [address] [place] [address] Assigned PCP 05/11/17 06/13/18 Yevgeniy Cervantes MD [address] [facility] [address] [place] [address] Assigned Heart and Vascular Provider 12/31/19 04/02/23 [place] [address] [place] [address] Assigned PCP 10/06/21 04/02/23 [place] [address] [place] [address] Assigned PCP 04/03/23 06/30/23 [place] [address] [place] [address] Assigned PCP 07/01/23 documented as of this encounter
--- OUTSIDE RECORDS SUMMARY | 2024-08-29 07:50 | XMS_ITS | Encounter Summary ---
Author Organization [facility] Address [address] [place] [address] Care Team Providers Care Professional Athletes Coach Name Role Phone Stephen Ureña MD Primary Care Provider Wm Banda MD Primary Care Provider Wm Banda MD Unavailable [phone] Wm Banda MD Unavailable [phone] Sangeetha Mishra APRN [facility] Unavailable [phone] Wm Banda MD Unavailable [phone] Yevgeniy Cervantes MD Unavailable Tamia Szymanski MD Primary Care Provider Tamia Szymanski MD Unavailable Wm Banda MD Primary Care Provider [phone] Ashely Bob MD Unavailable [phone] Tamia Szymanski MD Unavailable Encounter Details Date Type Department Care Team (Late st Contact Info) Description 11/22/2009 MyC Medical Advice [facility] [address] [place] [phone] Stephen Ureña MD [address] [place] [phone] Social History Tobacco Use Types Packs/Day Years Used Date Smoking Tobacco: Former Cigarettes Q uit: 03/10/1975 Comments:about 15 pack years hx Alcohol Use Standard Drinks/Week Comments Yes 33.3 (1 standard drink = 0.6 oz pure alcohol) Sex and Gender Information Value Date Recorded Sex Assigned at Not on file Legal Sex Male 3: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 OUTSIDE 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 SPECIAL Gender Identity Not on file Sexual Orientation Not on file 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 Not on file documented as of this encounter Plan of Treatment Not on file documented as of this encounter Visit Diagnoses Not on filedocumented in this encounter Additional Health Concerns Infection Onset Date Last Indicated Resolved Time MRSA-Contact Isolation Comment:Vinh, 08/18/2014 08/22/2014 08/22/2014 documented as of this encounter Care Teams Professional Athletes Coach Relationship Specialty Start Date End Date Stephen Ureña MD PCP - General 11/14/04 10/24/13 Wm Banda MD PCP - General Family Practice 10/25/13 09/23/21 [place] [address] [place] [address] PCP - Assigned PCP 05/11/17 05/12/18 [place] [address] [place] [address] PCP - General Family Medicine 09/24/21 11/20/22 [place] [address] [place] [address] PCP - General Family Medicine 11/21/22 [place] [address] [place] [address] Assigned PCP 07/05/18 10/05/21 Sangeetha Mishra APRN [facility] [address] [place] [address] Assigned PCP 06/14/18 07/04/18 [place] [address] [place] [address] Assigned PCP 05/11/17 06/13/18 Yevgeniy Cervantes MD [address] [facility] [address] [place] [address] Assigned Heart and Vascular Provider 12/31/19 04/02/23 [place] [address] [place] [address] Assigned PCP 10/06/21 04/02/23 [place] [address] [place] [address] Assigned PCP 04/03/23 06/30/23 [place] [address] [place] [address] Assigned PCP 07/01/23 documented as of this encounter
--- OUTSIDE RECORDS SUMMARY | 2024-08-29 07:50 | XMS_ITS | Clinical Summary ---
Author Organization [facility] Address [address] [place] [address] Care Team Providers Care Library Cataloging Technician Name Role Phone Wm Banda MD Primary Care Provider [phone] Tamia Szymanski MD Unavailable Allergies Active Allergy Reactions Criticality Noted Date Comments Bee 11/14/2004 Penicillins 11/14/2004 Medications VITAMIN D 1000 UNIT OR TABS 1 TABLET DAILY Ac tive Acetaminophen (TYLENOL PO) Take 500 mg by mouth as needed for mild pain or fever Active aspirin (ASA) 81 MG tabletIndication s:Dyspnea on exertion,Atypica l chest pain Take 1 tablet (81 mg) by mouth daily 30 tablet 3 9 Active cyanocobalamin (VITAMIN B-12) 1000 MCG tablet Take by mouth daily Active rosuvastatin (CRESTOR) 5 MG tabletIndication s:Hyperlipidemia LDL goal <70,Coronary artery disease involving [place] coronary artery of 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 90 tablet 3 2 Active EPINEPHrine (ANY BX GENERIC EQUIV) 0.3 MG/0.3ML injection 2-packIndication s:Bee sting-induced anaphylaxis, undetermined intent, sequela Inject 0.3 mLs (0.3 mg) into the muscle once as needed for anaphylaxis 0.6 mL 1 3 Active famotidine (PEPCID) 20 MG tablet Take 1 tablet (20 mg) by mouth 2 times daily 10 tablet 3 Active Active Problems Patient Care Coordination No te Formatting of this note migh t be different from the original. [email or web address] Problem Noted Date Diagnosed Date Coronary artery disease invo lving [place] coronary artery of [place] heart without angina pectoris 09/22/2019 Elevated coronary artery calcium score 9 Overview (09/07/2018): Added automatically from request for surgery [id number] History of colonic polyps 11/01/2013 Hyperlipidemia LDL goal <70 11/16/2012 History of prostate cancer 11/16/2012 Gout 09/18/2011 Psoriasis 07/09/2010 Bee sting-induced anaphylaxis 05/12/2009 Resolved Problems Problem Noted Date Diagnosed Date Resolved Date Status post coronary angiogram 09/22/2018 09/22/2019 Atypical chest pain 09/07/2018 09/22/19 20 Overview (09/07/2018): Added automatically from request for surgery [id number] Elevated blood pressure read ing without diagnosis [...] review Benign neoplasm of colon Overview (10/02/2005): 2002, repeat was normal in 2005 Immunizations Immunization Administration Dates Next Due COVID-19 MONOVALENT 12+ (Pfizer) 05/03/2020,0205/2020 HEPA 02/28/1997,06/01/1996 HepB 02/28/1997,07/02/1996,06/01/1996 Influenza (H1N1) 04/04/2009 Influenza (High Dose) Trival ent,PF (Fluzone) 01/29/2017,11/09/2015,12/26/2014,2013,12/29/2012 Influenza (IIV3) PF 01/06/2008, 8,12/05/2003,2002 Influenza Vaccine 18-64 (Flublok) 01/05/2019 Pneumo Conj 13-V (2010&after) 03/17/2015 Pneumococcal 23 valent 05/12/2009 TD,PF 7+ (Tenivac) 05/12/2009 TDAP (Adacel,Boostrix) 09/22/2020 TDAP Vaccine (Boostrix) 05/12/2009 Tetanus 06/01/1996 Zoster recombinant adjuvante d (Shingrix) 09/22/2020,09/22/2019 Family History Medical History Relation Comments Diabetes Brother early stages Cardiovascular Mother arrhythmia Gastrointestinal Disease Mother IBD Cancer Sister Leukemia C.A.D. No family hx of Cancer - colorectal No family hx of Eye Disorder No family hx of Relation Status Comments Brother Father Mother Sister Social History Tobacco Use Types Packs/Day Years Used Date Smoking Tobacco: Former Cigarettes Q uit: 03/10/1975 Smokeless Tobacco: Never Tobacco Cessation:Counseling Given: Yes Comments:about 15 pack years hx Alcohol Use Standard Drinks/Week Comments No 14 (1 standard drink = 0.6 oz pu re alcohol) Social Connection and Isolat ion Panel [NHANES] Answer Date Recorded In a typical week, how many times do you talk on the phone with family, friends, or neighbors? Twice a week 09/24/2021 How often do you get togethe r with friends or relatives? Once a week 09/24/2021 How often do you attend chur or buddhist services? More than 4 times per year 09/24/2021 Do you belong to any clubs o r organizations such as pentecostalism groups, unions, fraternal or athletic groups, or school groups? No 09/24/2021 Attends Club or Organization Meetings Not on yvette e 09/24/2021 Are you , , di vorced, , never , or living with a partner? 09/24/2021 AUDIT-C Answer Date Recorded Q1: How often do you have a drink containing alcohol? Never 09/24/2021 Q2: How many drinks containi ng alcohol do you have on a typical day when you are drinking? Patient does not drink Q3: How often do you have si x or more drinks on one occasion? Never 09/24/2021 Overall Financial Resource Strain (CARDIA) Answe r Date Recorded How hard is it for you to pa y for the very basics like food, housing, medical care, and heating? Not hard at all 09/24/2021 PHQ-2 Answer Date Recorded PHQ-2 Score 0 09/24/2021 [facility] - Occupational Stress Questionnaire Answer Date Recorded Do you feel stress - tense, restless, nervous, or anxious, or unable to sleep at night because your mind is troubled all the time - these days? Not at all 09/24/2021 Exercise Vital Sign Answer Date Recorde d On average, how many days pe r week do you engage in moderate to strenuous exercise (like a brisk walk)? 0 days 09/24/2021 On average, how many minutes do you engage in exercise at this level? 10 min 09/24/2021 Hunger Vital Sign Answer Date Recorded Within the past 12 months, y ou worried that your food would run out before you got the money to buy more. Never true 09/25/19 22 Within the past 12 months, t he food you bought just didn't last and you didn't have money to get more. Never true 09/24/2021 PRAPARE - Transportation Answer Date Re corded In the past 12 months, has l ack of transportation kept you from medical appointments or from getting medications? No 09/07 In the past 12 months, has l ack of transportation kept you from meetings, work, or from getting things needed for daily living? No 09/24/2021 Housing Stability Vital Sign Answer Martell e Recorded In the last 12 months, was t here a time when you were not able to pay the mortgage or rent on time? No 09/24/2021 In the last 12 months, how many places have you lived? 1 09/24/2021 In the last 12 months, was t here a time when you did not have a steady place to sleep or slept in a alf (including now)? 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 Not on file Not on file Last Filed Vital Signs Vital Sign Reading Time Taken Comments Blood Pressure 130/86 11/21/2022 4:10 PM CDT Pulse 80 11/21/2022 5:24 PM CDT Temperature 36.7 C (98.1 F) 11/21/2022 3:51 PM CDT Respiratory Rate 16 11/21/2022 5:24 PM CDT Oxygen Saturation 100% 11/21/2022 5:24 PM CDT Inhaled Oxygen Concentration - - Weight 85 kg (187 lb 6.4 oz) 10/01/2021 3:15 PM CDT Height 181.6 cm (5' 11.5) 10/01/2021 3:15 PM CD T Body Mass Index 25.77 10/01/2021 3:15 PM CDT Plan of Treatment Health Maintenance Due Date Last Done Comments RSV VACCINE (1 - 1-dose 75+ series) 12/22/2014 ANNUAL REVIEW OF HM ORDERS 09/22/2021 09/22/2020 FALL RISK ASSESSMENT 09/24/2022 09/24/2021, 09/22/2020, 09/22/2019, Additional history exists LIPID 09/26/2022 09/26/2021, 09/07, 09/22/2020, Additional history exists MEDICARE ANNUAL WELLNESS VISIT 10/01/2023 09/30/2022, 09/24/2021, 09/22/2020, Additional history exists COVID-19 VACCINE ( season) 2023 12/12/2021, 06/29/2021, 05/03/2020, Additional history exists PHQ-2 (once per calendar year) 2024 09/24/2021, 09/22/2020, 09/22/2019, Additional history exists INFLUENZA VACCINE (Season Ended) 2024 12/12/2021, 01/05/2019, 01/29/2017, Additional history exists ADVANCE CARE PLANNING 09/24/2026 09/24/2021 , 01/11/2015, 12/26/2014, Additional history exists DTAP/TDAP/TD VACCINE (4 - Td or Tdap) 09/22/2030 09/22/2020, 05/12/2009, 05/12/2009, Additional history exists ZOSTER VACCINE Completed 09/22/2020, 09/22/2019 PNEUMOCOCCAL VACCINE 50+ YEARS Completed 09/30/2022, 03/17/2015, 05/12/2009 HPV VACCINE Aged Out No longer eligi ble based on patient's age to complete this topic MENINGITIS VACCINE Aged Out No longer eligible based on patient's age to complete this topic Medical Devices Implanted Type Area Supervisor Long Goods Device Identifier Shelf Expiration Date Model / Serial / Lot Eye Imp Iol Trezevant Pcl Deluxe Tecnis Zma00 20.5 Implanted:Qty : 1 on 05/23/2016 by Karri Lei MD at [facility] Lens/Eye Implant Right: Eye [employer] 05/30/2020 [id number] 20.5 / [id number] / Procedures Procedure Name Priority Date/Time Associated Diagnosis Comments LIPID PROFILE Routine 09/26/2021 9:51 AM CDT Coronary artery disease involving [place] heart without angina pectoris, unspecified vessel or lesion type from Last 3 Months or Most Recently Relevant to Health Maintenance Results * Lipid Profile (09/26/2021 9:51 AM CDT) Cholesterol 145 <200 mg/dL 09/26/2021 10:22 AM CDT [facility] Triglycerides 59 <150 mg/dL 09/26/2021 10:22 AM CDT [facility] Direct Measure HDL 59 >=40 mg/dL 2021 10:22 AM CDT [facility] LDL Cholesterol Calculated 74 <=100 mg/dL 09/26/2021 10:22 AM CDT [facility] Non HDL Cholesterol 86 <130 mg/dL 09/26/2021 10:22 AM CDT [facility] Patient Fasting > 8hrs? Yes 09/26/2021 10:22 AM CDT [facility] Blood STRUCTURE OF RIGHT UPPER LIMB / Unknown Venipuncture / Unknown 09/26/2021 9:51 AM CDT 09/26/2021 9:54 AM CDT Narrative [facility] - 09/26/2021 10:22 AM CDT Cholesterol Desirable: <200 mg/dL Triglycerides Normal: Less than 150 mg/dL Borderline High: 150-199 mg/dL High: 200-499 mg/dL Very High: Greater than or equal to 500 mg/dL Direct Measure HDL Female: Greater than or equal to 50 mg/dL Male: Greater than or equal to 40 mg/dL LDL Cholesterol Desirable: <100mg/dL Above Desirable: 100-129 mg/dL Borderline High: 130-159 mg/dL High: 160-189 mg/dL Very High: >= 190 mg/dL Non HDL Cholesterol Desirable: 130 mg/dL Above Desirable: 130-159 mg/dL Borderline High: 160-189 mg/dL High: 190-219 mg/dL Very High: Greater than or equal to 220 mg/dL us Yevgeniy Cervantes MD LAB - BLOOD ORDERABLES Final Res ult [facility] [address] [facility] (1st floor, no room number) [place] [address], [facility] [phone] from Last 3 Months or Most Recently Relevant to Health Maintenance Additional Health Concerns Infection Onset Date Last Indicated MRSA-Contact Isolation Comment:Vinh, 08/18/2014 08/22/2014 08/22/2014 Insurance [facility] MEDICARE ADVANTAGE Advance Directives For more information, please contact: [phone] Documents on File Type Date Recorded Patient Mortician Helper Expl anation Advance Directives and Living Will 03/23/2015 9:54 AM Health Care Directiv e 01-18-15 Advance Directives and Living Will 12/28/2014 1:03 PM POLST 12-26-14 Advance Directives and Living Will 05/15/2011 Health Care Directiv e 02/05/11 * Full Code (Latest Code Status on File) Date Activated Date Inactivated Comments 03/17/2015 10:12 AM 09/22/2018 9:55 AM * Full Code Date Activated Date Inactivated Comments 12/26/2014 3:03 PM 03/17/2015 10:12 AM * Full Code Date Activated Date Inactivated Comments 05/25/2012 11:40 AM 12/26/2014 3:03 PM * Full Code Date Activated Date Inactivated Comments 05/24/2012 11:59 PM 05/25/2012 11:40 AM Care Teams Library Cataloging Technician Relationship Specialty [place] [address] [place] [address] PCP - General Family Medicine 11/21/22 [place] [address] [place] [address] Assigned PCP 07/01/23
--- OUTSIDE RECORDS SUMMARY | 2024-08-29 07:50 | XMS_ITS | Encounter Summary ---
Author Organization [facility] Address [address] [place] [address] Care Team Providers Care High Risk Ob Name Role Phone Wm Banda MD Primary Care Provider + [phone] Wm Banda MD Unavailable [phone] Wm Banda MD Unavailable [phone] Sangeetha Mishra APRN [facility] Unavailable [phone] Wm Banda MD Unavailable [phone] Yevgeniy Cervantes MD Unavailable Tamia Szymanski MD Primary Care Provider [phone] Tamia Szymanski MD Unavailable Wm Banda MD Primary Care Provider + [phone] Ashely Bob MD Unavailable [phone] Tamia Szymanski MD Unavailable Reason for Visit * Reason Onset Date Comments MyChart Communication 05/10/2017 Encounter Details Date Type Department Care Team (Late st Contact Info) Description 05/10/2017 [facility] [address] [place] [address] [place] [address] [place] [address] MyChart Communication Social History Tobacco Use Types Packs/Day Years Used Date Smoking Tobacco: Former Cigarettes Q uit: 03/10/1975 Smokeless Tobacco: Never Comments:about 15 pack years hx Alcohol Use Standard Drinks/Week Comments No 14 (1 standard drink = 0.6 oz pu re alcohol) Sex and Gender Information Value Date Recorded Sex Assigned at Not on file 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 Gender Identity Not on file Sexual Orientation Not on file 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 Not on file Not on file documented as of this encounter Plan of Treatment Not on file documented as of this encounter Visit Diagnoses Not on filedocumented in this encounter Additional Health Concerns Infection Onset Date Last Indicated Resolved Time MRSA-Contact Isolation Comment:Vinh, 08/18/2014 08/22/2014 08/22/2014 documented as of this encounter Care Teams High Risk Ob Relationship Specialty Start Date End Date Wm Banda MD PCP - General Family Practice 10/25/13 09/23/21 [place] [address] [place] [address] PCP - Assigned PCP 05/11/17 05/12/18 [place] [address] [place] [address] PCP - General Family Medicine 09/24/21 11/20/22 [place] [address] [place] [address] PCP - General Family Medicine 11/21/22 [place] [address] [place] [address] Assigned PCP 07/05/18 10/05/21 Sangeetha Mishra APRN NUTRITION AIDES TEACHER [address] [place] [address] Assigned PCP 06/14/18 07/04/18 [place] [address] [place] [address] Assigned PCP 05/11/17 06/13/18 Y[place]veniy Cervantes MD [address] [facility] [address] [place] [address] Assigned Heart and Vascular Provider 12/31/19 04/02/23 [place] [address] [place] [address] Assigned PCP 10/06/21 04/02/23 [place] [address] [place] [address] Assigned PCP 04/03/23 06/30/23 [place] [address] [place] [address] Assigned PCP 07/01/23 documented as of this encounter
--- OUTSIDE RECORDS SUMMARY | 2024-08-29 07:50 | XMS_ITS | Encounter Summary ---
Author Organization [place] Address [address] [place] [address]. [place] [address] Care Team Providers Care Crate Liner Name Role Phone Wm Banda MD Primary Care Provider + [phone] Wm Banda MD Unavailable [phone] Wm Banda MD Unavailable [phone] Sangeetha Mishra APRN SCALP TREATMENT OPERATOR Unavailable [phone] Wm Banda MD Unavailable [phone] Yevgeniy Cervantes MD Unavailable Tamia Szymanski MD Primary Care Provider [phone] Tamia Szymanski MD Unavailable Wm Banda MD Primary Care Provider + [phone] Ashely Bob MD Unavailable [phone] Tamia Szymanski MD Unavailable Reason for Visit * Reason Onset Date Comments Refill Request 04/22/2018 Encounter Details Date Type Department Care Team (Late st Contact Info) Description 04/22/2018 MyC Refill [facility] [id number] [place] [phone] Sherron Rojas APRN SCALP TREATMENT OPERATOR [address] [place] [address] Refill Request Social History Tobacco Use Types Packs/Day Years Used Date Smoking Tobacco: Former Cigarettes Q uit: 03/10/1975 Smokeless Tobacco: Never Comments:about 15 pack years hx Alcohol Use Standard Drinks/Week Comments No 14 (1 standard drink = 0.6 oz pu re alcohol) PHQ-2 Answer Date Recorded PHQ-2 Score 0 03/24/2018 Sex and Gender Information Value Date Recorded Sex Assigned at Not on file 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 Gender Identity Not on file Sexual Orientation Not on file 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 Not on file Not on file documented as of this encounter Plan of Treatment Not on file documented as of this encounter Visit Diagnoses Diagnosis Bee sting-induced anaphylaxis, undetermined intent, sequela documented in this encounter Additional Health Concerns Infection Onset Date Last Indicated Resolved Time MRSA-Contact Isolation Comment:Vinh 08/18/2014 08/22/2014 08/22/2014 documented as of this encounter Care Teams Crate Liner Relationship Specialty Start Date End Date Wm Banda MD PCP - General Family Practice 10/25/13 09/23/21 [place] [address] [place] [address] PCP - Assigned PCP 05/11/17 05/12/18 [place] [address] [place] [address] PCP - General Family Medicine 09/24/21 11/20/22 [place] [address] [place] [address] PCP - General Family Medicine 11/21/22 [place] [address] [place] [address] Assigned PCP 07/05/18 10/05/21 Sangeetha Mishra APRN [facility] [address] [place] [address] Assigned PCP 06/14/18 07/04/18 [place] [address] [place] [address] Assigned PCP 05/11/17 06/13/18 Yevgeniy Cervantes MD [address] [facility] [address] [place], [place] [address] Assigned Heart and Vascular Provider 12/31/19 04/02/23 [place] [address] [place] [address] Assigned PCP 10/06/21 04/02/23 [place] [address] [place] [address] Assigned PCP 04/03/23 06/30/23 [place] [address] [place] [address] Assigned PCP 07/01/23 documented as of this encounter
--- OUTSIDE RECORDS SUMMARY | 2024-08-29 07:50 | XMS_ITS | Encounter Summary ---
Author Organization [place] Address [address] [place] [address] Care Team Providers Care Soil Conservation Technician Name Role Phone Wm Banda MD Primary Care Provider + [phone] Wm Banda MD Unavailable [phone] Yevgeniy Cervantes MD Unavailable Tamia Szymanski MD Primary Care Provider [phone] Tamia Szymanski MD Unavailable Wm Banda MD Primary Care Provider + [phone] Ashely Bob MD Unavailable [phone] Tamia Szymanski MD Unavailable Encounter Details Date Type Department Care Team (Late st Contact Info) Description 06/15/2021 MyC Medical Advice [facility] [id number] [place] [phone] Becky Rivas Social History Tobacco Use [...] on file 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 No / Unsure 06/04/2021 9:35 AM CDT documented as of this encounter Plan of Treatment Not on file documented as of this encounter Visit Diagnoses Not on filedocumented in this encounter Additional Health Concerns Infection Onset Date Last Indicated Resolved Time MRSA-Contact Isolation Comment:Vinh, 08/18/2014 08/22/2014 08/22/2014 documented as of this encounter Care Teams Soil Conservation Technician Relationship Specialty Start Date End Date Wm Banda MD PCP - General Family Practice 10/25/13 09/23/21 [place] [address] [place] [address] PCP - General Family Medicine 09/24/21 11/20/22 [place] [address] [place] [address] PCP - General Family Medicine 11/21/22 [place] [address] [place] [address] Assigned PCP 07/05/18 10/05/21 Yevgeniy Cervantes MD [address] [facility] [address] [place], [place] [address] Assigned Heart and Vascular Provider 12/31/19 04/02/23 [place] [address] [place] [address] Assigned PCP 10/06/21 04/02/23 [place] [address] [place] [address] Assigned PCP 04/03/23 06/30/23 [place] [address] [place] [address] Assigned PCP 07/01/23 documented as of this encounter
--- NOTE | 2024-08-29 08:15 | CRLHL7_ITS ---
For Patients: As a result of the Century Cures Act, medical imaging exams and procedure reports are released immediately into your electronic medical record. You may view this report before your referring provider. If you have questions, please contact your health care provider. INDICATION: Chest pain. TECHNIQUE: Chest 1 views. COMPARISON: None. FINDINGS: Cardiovasculature and mediastinum: Heart is partially obscured by diaphragm eventration. Atherosclerosis of the aorta. Lungs and pleural spaces: Eventration of the left hemidiaphragm. Minimal left basilar atelectasis. No pneumothorax or pleural effusion. Bones and soft tissues: No significant findings. IMPRESSION: Eventration of the left hemidiaphragm. There is a 4 millimeter nodule in the left upper lobe. In a high-risk patient, consider further evaluation with CT chest. Dictated by Carolina Cavazos MD @ 08/29/2024 8:59:07 AM (Electronically Signed)
[2024-08-29 08:32] LABS: Basophils Absolute Auto 0.02 K/uL (0.00-0.30); Basophils Percent Auto 0.3 % (0.0-3.0); Eosinophils Absolute Auto 0.13 K/uL (0.00-0.50); Hematocrit* 43.1 % (37.0-53.0); Hemoglobin* 14.6 gm/dL (13.5-17.5); Lymphocytes Absolute Auto 1.46 K/uL (0.90-2.90); Lymphocytes Percent Auto 22.7 % (20-44); Mean Corpuscular HGB Conc 34 gm/dL (32-36); Mean Corpuscular Hemoglobin 32 pg (26-34); Mean Corpuscular Volume 94 fL (80-100); Monocytes Percent Auto 10.3 % (0.0-11.0); Neutrophils Absolute Auto 4.15 K/uL (1.7-7.0); Neutrophils Percent Auto 64.7 % (42.0-72.0); Platelet Count* 213 K/uL (140-440); RDW Coefficient of Variation % 12.5 % (11.5-15.5); Red Blood Count* 4.57 m/uL (4.30-5.90); White Blood Count* 6.42 K/uL (4.50-11.00)
[2024-08-29] MEDS: 0.9 % SODIUM CHLORIDE 1000 ml 1,000 ML IV (08:41)
[2024-08-29 08:43] LABS: Troponin, Point-of-Care* 0.02 ng/ml (0.01-0.04)
[2024-08-29 08:48] LABS: Albumin* 4.4 g/dL (3.3-5.0); Chloride* 100 mmol/L (96-114); Potassium* 4.6 mmol/L (3.6-5.1); Sodium* 135 mmol/L (135-149)
[2024-08-29 08:51] LABS: Alanine Aminotransferase* 14 U/L (4-50); Alkaline Phosphatase* 48 U/L (40-150); Anion Gap 7 mEq/L (7-15); Aspartate Amino Transferase* 28 U/L (12-35); Bilirubin Total* 2.6 mg/dL (0.1-1.5); Blood Urea Nitrogen* 11 mg/dL (7-30); Carbon Dioxide* 28 mmol/L (20-32); Creatinine* 0.8 mg/dL (0.5-1.5); Est. Creatinine Clearance* 60.36; Estimated Glomerular Filt Rate 87 ml/min; Lipase* 64 U/L (23-300); Total Protein* 7.4 g/dL (6.0-8.3)
[2024-08-29 08:52] LABS: Calcium* 9.3 mg/dL (8.4-10.6); Glucose* 112 mg/dL (60-115); INR 0.96 (0.91-1.10); Prothrombin Time 13.6 Seconds
[2024-08-29 08:53] LABS: Partial Thromboplastin Time* 32 Seconds (23-33)
[2024-08-29 08:54] LABS: Slide Review Reflex No
[2024-08-29 08:55] LABS: C Reactive Protein* < 0.5 mg/dL (0.5-1.0)
--- NOTE | 2024-08-29 08:55 | ED.CHESTPAIN ---
HPI - Chest Pain General Date Seen: 08/29/24 Chief Complaint: Chest Pain Stated Complaint: chest pain Time Seen by Provider: 08/29/24 07:49 Source: patient Mode of arrival: ambulatory Limitations: no limitations History of Present Illness HPI narrative: Patient is an 83-year-old gentleman who is slightly hard hearing presents here with chest pain, ambulatory to the emergency room, this occurred yesterday he described it is rather atypical chest pain that shot up into his chest. He was sitting at approximately 10:00 p.m., this lasted seconds, then resolved, there was a component yesterday but more of stronger component today of back discomfort with this. He describes the back discomfort this morning, along with the shooting discomfort while he was in the shower, this is over his back but of to wean his shoulder blades, this lasted for approximately 15-30 minutes, and then resolve. Currently he is basically pain-free he tells me, he did not have any nausea, vomiting diaphoresis elevated heart rate. He just underwent PET scan, at [facility], through I, he is unaware of the results of this. History of the angiogram in 2019 at [facility], at that time he tells me that there was no lesions that were able to be stented. He did take 162 mg of aspirin at home. Has no exertional chest pain at all, although again little bit of a vague gentleman. Denies any leg swelling, blood pressure he says was a little low when he came out of the shower for him, at 1:19 a.m. on 80. History of colonic polyps hyperlipidemia history of prostate cancer history gout, history of psoriasis. MD complaint: chest heaviness and chest discomfort Pertinent past history: coronary artery disease Timing of current episode: episodic Prior episodes: Yes Onset: during rest Pain location: substernal Pain radiation: back Severity: moderate Quality: tightness and heaviness Exacerbating factors: nothing Treatment prior to arrival: aspirin Risk Factors Coronary artery disease risk factors: hypertension Thoracic aortic dissection risk factors: none Related Data Home Medications ?Medication ?Instructions ?Recorded ?Confirmed aspirin 81 mg chewable tablet 81 mg PO DAILY 08/29/24 08/29/24 (Aspirin Childrens) metoprolol succinate 25 mg 25 mg PO DAILY 08/29/24 08/29/24 tablet,extended release 24 hr pantoprazole 20 mg tablet,delayed 20 mg PO DAILY 08/29/24 08/29/24 release rosuvastatin 5 mg tablet 5 mg PO Q1D 08/29/24 08/29/24 Allergies Allergy/AdvReac Type Severity Reaction Status Date / Time Penicillins Allergy Unknown Verified 08/29/24 08:01 bee sting Allergy Severe Anaphylaxis Uncoded 08/29/24 08:01 Review of Systems Status of ROS Reports: 10 or more systems reviewed and unremarkable except as noted in History and below Exam Narrative Exam Narrative: On examination in room 5 he is in no apparent distress he tells me he is pain-free at the present time. GCS is 15/15 alert and oriented pupils equal round reactive to light again heart little hard hearing, TMs normal oropharynx normal neck is supple, thin gentleman, no lymphadenopathy anterior posterior chains, JVP not elevated, carotid upstrokes are equal bilaterally chest is good air entry bilaterally with no wheezing crackles noted heart sounds no clicks murmurs or gallops, abdomen is soft, no guarding no organomegaly bowel sounds normal, no CVA tenderness, moves all extremities independently and well with absence of edema, normal peripheral pulses. Neurologically intact moving upper lower extremities, normal muscle bulk, no rashes noted. Const Vital Signs, click to edit/add: Vital Signs - 24 hr 08/29/24 07:53 08/29/24 08:09 08/29/24 08:10 Temperature 97.5 F L Pulse Rate 73 74 Pulse Rate [Pulse Oximeter] 69 Respiratory Rate 20 33 H 17 Blood Pressure 174/88 H Blood Pressure [Right Upper Arm] 168/55 H Pulse Oximetry 97 98 99 Oxygen Delivery Method Room Air 08/29/24 08:15 08/29/24 08:31 08/29/24 08:32 Temperature Pulse Rate 68 64 Pulse Rate [Pulse Oximeter] Respiratory Rate 14 14 14 Blood Pressure 167/103 H Blood Pressure [Right Upper Arm] Pulse Oximetry 97 97 Oxygen Delivery Method Course Consultations Consultation #1: Kyler Evangelista Cardiology is paged at 8:54 a.m.. Time: 09:35 Consultation #2: I spoke to Cardiology agreed the patient should come up for urgent angiogram, ablation will be placed on heparin per our discussion, 4-5 hour wait, patient is currently stable, without chest pain shortness of breath or any other anginal equivalent, we will call him back if things change Vital Signs Vital signs: Initial Vital Signs Temperature 97.5 F L 08/29/24 07:53 Temperature Source Temporal Artery Scan 08/29/24 07:53 Pulse Rate 69 08/29/24 07:53 Respiratory Rate 20 08/29/24 07:53 Blood Pressure 168/55 H 08/29/24 07:53 Blood Pressure Mean 92 08/29/24 07:53 Blood Pressure Position Sitting 08/29/24 07:53 Pulse Oximetry 97 08/29/24 07:53 Oxygen Delivery Method Room Air 08/29/24 07:53 Vital Signs Temperature 97.5 F L 08/29/24 07:53 Pulse Rate 69 08/29/24 07:53 Respiratory Rate 20 08/29/24 07:53 Blood Pressure 168/55 H 08/29/24 07:53 Pulse Oximetry 97 08/29/24 07:53 Oxygen Delivery Method Room Air 08/29/24 07:53 Temperature 97.5 F L 08/29/24 07:53 Pulse Rate 64 08/29/24 08:32 Respiratory Rate 14 08/29/24 08:32 Blood Pressure 167/103 H 08/29/24 08:32 Pulse Oximetry 97 08/29/24 08:32 Oxygen Delivery Method Room Air 08/29/24 07:53 Medications Administered Medications: Generic Name Dose Route Start Last Admin Trade Name Freq PRN Reason Stop Dose Admin Heparin Sodium/Dextrose 25,000 unit in 500 mls @ 0 mls/hr 08/29/24 09:30 08/29/24 09:46 Heparin IV 950 unit/hr .Q0M CHIQUIS 19 mls/hr Protocol Administration Per Protocol Discontinued Medications Generic Name Dose Route Start Last Admin Trade Name Freq PRN Reason Stop Dose Admin Heparin Sodium (Porcine) 4,000 unit 08/29/24 09:26 08/29/24 09:46 Heparin 5,000 Unit/0.5 Ml Inj IVP 08/29/24 09:27 4,000 unit ONCE ONE Administration Sodium Chloride 1,000 mls @ 1,000 mls/hr 08/29/24 08:15 08/29/24 09:33 0.9 % Sodium Chloride 1000 Ml IV 08/29/24 09:14 Infused .Q1H CHIQUIS Infusion MDM - Chest Pain MDM Narrative Medical decision making narrative: During the evaluation of this patient I considered multiple differential diagnosis is. The life-threatening differential diagnosis include coronary disease/SD, pulmonary embolism, pneumothorax, pneumonia, and aortic dissection. Other differential diagnosis included but were not limited to pericarditis, myocarditis, chest wall pain, GERD, esophageal rupture, rib fracture contusion, pleurisy, as well as other etiologies. Given his abnormal myocardial perfusion scan, I paged Cardiology, reassuring normal troponin currently. Medical Records Data Attestation: I reviewed the patient's medical records. Medical records narrative: I was able to review his epic chart, 08/24/[address] a PET CT Myoview done, Report is myocardial perfusion was abnormal with a small transmural infarction basal mid inferior lateral, a large amount of moderate to severe ischemia in the basal mid apical and inferior septal area. EF is decreased to 62%, in comparison to 07/17/2018 inferior lateral ischemia is worse. Lab Data Attestation: I reviewed the patient's lab results. Labs: Lab Results 08/29/24 08/29/24 Range/Units 08:15 08:20 WBC 6.42 (4.50-11.00) K/uL RBC 4.57 (4.30-5.90) m/uL Hgb 14.6 (13.5-17.5) gm/dL Hct 43.1 (37.0-53.0) % MCV 94 (80-100) fL MCH 32 (26-34) pg MCHC 34 (32-36) gm/dL RDW Coeff of Mandy 12.5 (11.5-15.5) % Plt Count 213 (140-440) K/uL Neut % (Auto) 64.7 (42.0-72.0) % Lymph % (Auto) 22.7 (20-44) % Nobles % (Auto) 10.3 (0.0-11.0) % Eos % (Auto) 2.0 (0.0-7.0) % Baso % (Auto) 0.3 (0.0-3.0) % Neut # (Auto) 4.15 (1.7-7.0) K/uL Lymph # (Auto) 1.46 (0.90-2.90) K/uL Nobles # (Auto) 0.70 (0.00-0.90) K/UL Eos # (Auto) 0.13 (0.00-0.50) K/uL Baso # (Auto) 0.02 (0.00-0.30) K/uL Abs Immat Gran (auto) 0.00 (0.00-0.30) K/uL Imm/Tot Granulo (auto) 0.0 % INR 0.96 (0.91-1.10) APTT 32 (23-33) Seconds D-Dimer Quant (PE/DVT) < 0.27 (0.00-0.50) ug/ml Sodium 135 (135-149) mmol/L Potassium 4.6 (3.6-5.1) mmol/L Chloride 100 (96-114) mmol/L Carbon Dioxide 28 (20-32) mmol/L Anion Gap 7 (7-15) mEq/L BUN 11 (7-30) mg/dL Creatinine 0.8 (0.5-1.5) mg/dL Estimated Creat Clear 60.36 Estimated GFR 87 ml/min Glucose 112 (60-115) mg/dL Calcium 9.3 (8.4-10.6) mg/dL Total Bilirubin 2.6 H (0.1-1.5) mg/dL Direct Bilirubin 0.0 (0.0-0.5) mg/dL AST 28 (12-35) U/L ALT 14 (4-50) U/L Alkaline Phosphatase 48 (40-150) U/L C-Reactive Protein < 0.5 L (0.5-1.0) mg/dL NT-Pro-B Natriuret Pep 803 H (See Note) pg/mL Total Protein 7.4 (6.0-8.3) g/dL Albumin 4.4 (3.3-5.0) g/dL Lipase 64 (23-300) U/L POC Troponin I 0.02 (0.01-0.04) ng/ml Imaging Data Chest x-ray: Attestation: I have reviewed the pertinent imaging results. My impression: Hyperinflation of lungs, left hemidiaphragm elevation, likely chronic, no old x-ray to compare to, Assessment: No acute findings, Radiologist's impression: atient: Adam Guan MR#: [id number] : 1940 Acct:[id number] Loc: ED Service Date: 08/29/[address]: Ordering Physician: Randy Burgess M.D. Date of Service: 08/29/24 Procedure(s): XR chest 2V Accession Number(s): [id number] cc: Wm Banda M.D.; Randy Burgess M.D.~ For Patients: As a result of the Cures Act, medical imaging exams and procedure reports are released immediately into your electronic medical record. You may view this report before your referring provider. If you have questions, please contact your health care provider. INDICATION: Chest pain. TECHNIQUE: Chest 1 views. COMPARISON: None. FINDINGS: Cardiovasculature and mediastinum: Heart is partially obscured by diaphragm eventration. Atherosclerosis of the aorta. Lungs and pleural spaces: Eventration of the left hemidiaphragm. Minimal left basilar atelectasis. No pneumothorax or pleural effusion. Bones and soft tissues: No significant findings. IMPRESSION: Eventration of the left hemidiaphragm. There is a 4 millimeter nodule in the left upper lobe. In a high-risk patient, consider further evaluation with CT chest. Dictated by Carolina Cavazos MD @ 08/29/2024 8:59:07 AM (Electronically Signed) ECG Data Attestation: I personally reviewed and interpreted this ECG as follows: ECG interpretation date: 08/29/24 Prior ECG tracings: not available for review Interpretation: EKG shows normal sinus rhythm with a ventricular rate of 69 right bundle-branch block configuration. No acute ST wave changes, although he does in lead [address] wave irregularities. QRS normal at 138 milliseconds, QT of 426 and QTC is 456. Assessment: Abnormal EKG with right bundle-branch block configuration, mild ST wave abnormalities noted inferior, no old EKG to compare to. Critical Care Time Critical Care Time Critical Care Time: Yes Attestation: The patient required my highest level preparedness to intervene emergently and I personally spent this critical care time directly and personally managing the patient. This critical care time included: Obtaining a history; Examining the patient; Pulse oximetry; Ordering and reviewing of studies; Arranging urgent treatment with development of a management plan; Evaluation of patients response to treatment; Frequent reassessment discussions with other providers. This critical care time was performed to assess and manage the high probability of imminent life-threatening deterioration that could result in multiorgan failure. It was exclusive of separate billable procedures and treating other patients and teaching time. Total Critical Care Time in Minutes: 60 Discharge Plan Discharge Clinical Impression: Chest pain, Unstable angina pectoris Patient Disposition: Edgarabhishek Kyler Evangelista Condition: Improved Instructions: Angina (DC), Acute Coronary Syndrome (ED), Angiogram (DC) Activity Level: Up with assist Prescriptions: No Action pantoprazole 20 mg tablet,delayed release (DR/EC) 20 mg PO DAILY metoprolol succinate 25 mg tablet extended release 24 hr 25 mg PO DAILY rosuvastatin 5 mg tablet 5 mg PO Q1D aspirin [Aspirin Childrens] 81 mg tablet,chewable 81 mg PO DAILY Stand Alone Forms: [employer] Info Instructions
[2024-08-29 09:00] LABS: D Dimer Quantitative* < 0.27 ug/ml (0.00-0.50)
[2024-08-29 09:44] LABS: NT Pro B Type NatriureticPept* 803 pg/mL (See Note)
[2024-08-29] MEDS: HEPARIN 25,000 UNIT/500 ML BAG 19 UNIT IV (09:46)
[2024-08-29] MEDS: HEPARIN 5,000 UNIT/0.5 ML INJ 4000 UNIT IVP (09:46)
== END 2024-08-29 11:56 | disposition short-term general hospital (02) ==
PROVIDERS: Emergency Provider Family Medicine; PCP Family Medicine
DX: R07.9 Chest pain, unspecified (principal); I20.0 Unstable angina
CPT/HCPCS: 36415; 71046; 80048; 80076; 83690; 83880; 84484; 85025; 85379; 85610; 85730; 86140; 93005; 94761; 99285; 99291; A0425; A0434; J1644; J7030

== ENCOUNTER 2024-08-29 11:45 | Outpatient (CLI) | payer MEDICARE, SELFPAY ==
--- OUTSIDE RECORDS SUMMARY | 2024-04-15 05:45 | XMS_ITS | Continuity of Care Document ---
Author Name [facility] Organization [facility] Care Team Providers Care Entry Level Automotive Technician Name Role Phone [facility] Unavailable Unavailable Problems Combined list of problems from [facility] and [facility] facilities. It does not include entries that were removed or entered in error. Problem Status Onset Date Problem Type Date of Resolution Comments Source Hearing Loss, Partial * (ICD-9-CM 389.9) Active Condition [facility] Insect Stings (ICD-9-CM E905.5/989.5) Active Condition Jun 26, 2009 Entered By: DEEP ROSA Comment: Bee stings-thro at [facility] Psoriasis * (ICD-9-CM 696.1) Active Condition [facility] Tinnitus * (ICD-9-CM 388.30) Active Condition [facility] Diagnosis: ICD-10-CM H90.3 Sensorineural hearing loss, bilateral Active Diagnosis [facility] Diagnosis: ICD-10-CM Z01.118 Encntr for exam of ears and hearing w oth abnormal findings Active Diagnosis [facility] Allergies, Adverse Reactions, Alerts Combined list of allergies from [facility] facilities. It does not include entries that were removed or entered in error. Substance Category Reaction Severity Reaction type Status Date Reported Comments Source PENICILLIN Propensity to adverse reactions to drug (finding) Pharyngeal swelling active 0 [place] [facility] Immunizations Combined list of available immunizations from the Department of [facility] and [facility] facilities. Immunization Series Date Given Administered By Site Reaction Lot Number CVX Code Drug Gas Appliance Repairer Status Comments Source NOVEL INFLUENZA-H1N 1-09, ALL FORMULATIONS 2009 128 complet ed [facility] PNEUMOCOCCAL, UNSPECIFIED FORMULATION 2009 109 complet ed [facility] Encounters Combined list of: 1) Encounters from Department [facility] facilities going backup to the last 18 months, not all [place] inpatient encounters are included; 2) Encounters from the Department of [facility] facilities going backup to 280 months. Location Location Details Encounter Type Encounter Number Reason For Visit Attending Provider ADM Date DC Date Status Disposition Source [place] [facility] HEARING AID FITTING/CH ECKING [id number] Diagnos is: ICD-10- CM Z01.118 Encntr for exam of ears and hearing w oth abnorma l finding Jackson Harris 03/18 [facility] [place] [facility] HEARING AID FITTING/CH ECKING [id number] Diagnos is: ICD-10- CM H90.3 Sensori neural hearing loss, bilater Jackson Clancy 04/15 [facility] Social History Combined list of available smoking, tobacco, and other social history from [facility] and [facility] facilities. Social History Type Response Date Comment Sourc e Tobacco smoking status NHIS FORMER TOBACCO USER 7Y OR GREATER 06/26/2009 [facility]
--- OUTSIDE RECORDS SUMMARY | 2024-08-31 00:34 | XMS_ITS | Encounter Summary ---
Author Organization [facility] Address [address] [place] [address] Care Team Providers Care Business Analyst Name Role Phone Wm Banda MD Primary Care Provider + [phone] Wm Banda MD Unavailable [phone] Yevgeniy Cervantes MD Unavailable Tamia Szymanski MD Primary Care Provider [phone] Tamia Szymanski MD Unavailable Wm Banda MD Primary Care Provider + [phone] Ashely Bob MD Unavailable [phone] Tamia Szymanski MD Unavailable Encounter Details Date Type Department Care Team (Late st Contact Info) Description 08/24/2021 MyC Medical Advice [facility] [id number] [place] [phone] Becky Rivas Social History Tobacco Use [...] on file 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 Gender Identity Not on file Sexual Orientation Not on file 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 Not on file Not [...] documented as of this encounter Care Teams Business Analyst Relationship Specialty Start Date End Date Wm Banda MD PCP - General Family Practice 10/25/13 09/23/21 [place] [address] [place] [address] PCP - General Family Medicine 09/24/21 11/20/22 [place] [address] [place] [address] PCP - General Family Medicine 11/21/22 [place] [address] [place] [address] Assigned PCP 07/05/18 10/05/21 Yevgeniy Cervantes MD [address] [facility] [address] [address] Assigned Heart and Vascular Provider 12/31/19 04/02/23 [place] [address] [place] [address] Assigned PCP 10/06/21 04/02/23 [place] [address] [place] [address] Assigned PCP 04/03/23 06/30/23 [place] [address] [place] [address] Assigned PCP 07/01/23 documented as of this encounter
--- OUTSIDE RECORDS SUMMARY | 2024-08-31 00:34 | XMS_ITS | Encounter Summary ---
Author Organization [facility] Address [address] [place] [address] Care Team Providers Care Ladle Handler Name Role Phone Stephen Ureña MD Primary Care Provider Wm Banda MD Primary Care Provider Wm Banda MD Unavailable [phone] Wm Banda MD Unavailable [phone] Sangeetha Mishra APRN [employer] [facility] [employer] Unavailable [phone] Wm Banda MD Unavailable [phone] Yevgeniy Cervantes MD Unavailable Tamia Szymanski MD Primary Care Provider Tamia Szymanski MD Unavailable Wm Banda MD Primary Care Provider [phone] Ashely Bob MD Unavailable [phone] Tamia Szymanski MD Unavailable Encounter Details Date Type Department Care Team (Late st Contact Info) Description 11/12/2009 [facility] [id number] [place] [phone] Stephen Ureña MD [address] [place] [phone] Social History Tobacco Use Types Packs/Day Years Used Date Smoking Tobacco: Former Cigarettes Q uit: 03/10/1975 Comments:about 15 pack years hx Alcohol Use Standard Drinks/Week Comments Yes 33.3 (1 standard drink = 0.6 oz pure alcohol) Sex and Gender Information Value Date Recorded Sex Assigned at Not on file 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 Gender Identity Not on file Sexual Orientation Not on file 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 Not on file Not on file documented as of this encounter Plan of Treatment Not on file documented as of this encounter Visit Diagnoses Not on filedocumented in this encounter Additional Health Concerns Infection Onset Date Last Indicated Resolved Time MRSA-Contact Isolation Comment:Vinh, 08/18/2014 08/22/2014 08/22/2014 documented as of this encounter Care Teams Ladle Handler Relationship Specialty Start Date End Date Stephen Ureña MD PCP - General 11/14/04 10/24/13 Wm Banda MD PCP - General Family Practice 10/25/13 09/23/21 [place] [address] [place] [address] PCP - Assigned PCP 05/11/17 05/12/18 [place] [address] [place] [address] PCP - General Family Medicine 09/24/21 11/20/22 [place] [address] [place] [address] PCP - General Family Medicine 11/21/22 [place] [address] [place] [address] Assigned PCP 07/05/18 10/05/21 Sangeetha Mishra APRN [employer] [facility] [facility] [address] [place] [address] Assigned PCP 06/14/18 07/04/18 [place] [address] [place] [address] Assigned PCP 05/11/17 06/13/18 Yevgeniy Cervantes MD [address] [facility] [address] [place] [address] Assigned Heart and Vascular Provider 12/31/19 04/02/23 [place] [address] [place] [address] Assigned PCP 10/06/21 04/02/23 [place] [address] [place] [address] Assigned PCP 04/03/23 06/30/23 [place] [address] [place] [address] Assigned PCP 07/01/23 documented as of this encounter
--- OUTSIDE RECORDS SUMMARY | 2024-08-31 00:34 | XMS_ITS | Encounter Summary ---
Author Organization [facility] Address [address] [place] [address]. [place] [address] Care Team Providers Care Slag Expander Name Role Phone Wm Banda MD Primary Care Provider + [phone] Wm Banda MD Unavailable [phone] Wm Banda MD Unavailable [phone] Sangeetha Mishra APRN SENIOR POWER PLANT OPERATOR Unavailable [phone] Wm Banda MD Unavailable [phone] Yevgeniy Cervantes MD Unavailable Tamia Szymanski MD Primary Care Provider [phone] Tamia Szymanski MD Unavailable Wm Banda MD Primary Care Provider + [phone] Ashely Bob MD Unavailable [phone] Tamia Szymanski MD Unavailable Reason for Visit * Reason Onset Date Comments Refill Request 04/22/2018 Encounter Details Date Type Department Care Team (Late st Contact Info) Description 04/22/2018 MyC Refill [facility] [id number] [place] [phone] Sherron Rojas APRN SENIOR POWER PLANT OPERATOR [address] [place] [address] Refill Request Social History Tobacco Use Types [...] on file 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 Gender Identity Not on file Sexual Orientation Not on file 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 on file Not on file documented as of this encounter Plan of Treatment Not on file documented as of this encounter Visit Diagnoses Diagnosis Bee sting-induced anaphylaxis, undetermined intent, sequela documented in this encounter Additional Health Concerns Infection Onset Date Last Indicated Resolved Time MRSA-Contact Isolation Comment:Vinh 08/18/2014 08/22/2014 08/22/2014 documented as of this encounter Care Teams Slag Expander Relationship Specialty Start Date End Date Wm Banda MD PCP - General Family Practice 10/25/13 09/23/21 [place] [address] [place] [address] PCP - Assigned PCP 05/11/17 05/12/18 [place] [address] [place] [address] PCP - General Family Medicine 09/24/21 11/20/22 [place] [address] [place] [address] PCP - General Family Medicine 11/21/22 [place] [address] [place] [address] Assigned PCP 07/05/18 10/05/21 Sangeetha Mishra APRN [facility] [address] [place] [address] Assigned PCP 06/14/18 07/04/18 [place] [address] [place] [address] Assigned PCP 05/11/17 06/13/18 Yevgeniy Cervantes MD [address] [facility] [address] [place], [place] [address] Assigned Heart and Vascular Provider 12/31/19 04/02/23 [place] [address] [place] [address] Assigned PCP 10/06/21 04/02/23 [place] [address] [place] [address] Assigned PCP 04/03/23 06/30/23 [place] [address] [place] [address] Assigned PCP 07/01/23 documented as of this encounter
--- OUTSIDE RECORDS SUMMARY | 2024-08-31 00:34 | XMS_ITS | Encounter Summary ---
Author Organization [facility] Address [address] [place] [address] Care Team Providers Care [facility] Owner Name Role Phone Wm Banda MD Primary Care Provider + [phone] Wm Banda MD Unavailable [phone] Wm Banda MD Unavailable [phone] Sangeetha Mishra APRN [facility] Unavailable [phone] Wm Banda MD Unavailable [phone] Yevgeniy Cervantes MD Unavailable Tamia Szymanski MD Primary Care Provider [phone] Tamia Szymanski MD Unavailable Wm Banda MD Primary Care Provider + [phone] Ashely Bob MD Unavailable [phone] Tamia Szymanski MD Unavailable Reason for Visit * Reason Onset Date Comments MyChart Communication 05/10/2017 Encounter Details Date Type Department Care Team (Late st Contact Info) Description 05/10/2017 [facility] [address] [place] [address] [place] [address] [place] [address] MyChart Communication Social History Tobacco Use Types Packs/Day Years Used Date Smoking Tobacco: Former Cigarettes Q uit: 03/10/1975 Smokeless Tobacco: Never Comments:about 15 pack years hx Alcohol Use Standard Drinks/Week Comments No 14 (1 standard drink = 0.6 oz pu re alcohol) Sex and Gender Information Value Date Recorded Sex Assigned at Not on file 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 Sex Male 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 Gender Identity Not on file Sexual Orientation Not on file 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 Not on file documented as of this encounter Plan of Treatment Not on file documented as of this encounter Visit Diagnoses Not on filedocumented in this encounter Additional Health Concerns Infection Onset Date Last Indicated Resolved Time MRSA-Contact Isolation Comment:Vinh, 08/18/2014 08/22/2014 08/22/2014 documented as of this encounter Care Teams [facility] Owner Relationship Specialty Start Date End Date Wm Banda MD PCP - General Family Practice 10/25/13 09/23/21 [place] [address] [place] [address] PCP - Assigned PCP 05/11/17 05/12/18 [place] [address] [place] [address] PCP - General Family Medicine 09/24/21 11/20/22 [place] [address] [place] [address] PCP - General Family Medicine 11/21/22 [place] [address] [place] [address] Assigned PCP 07/05/18 10/05/21 Sangeetha Mishra APRN [employer] [address] [place] [address] Assigned PCP 06/14/18 07/04/18 [place] [address] [place] [address] Assigned PCP 05/11/17 06/13/18 Yevgeniy Cervantes MD [address] [facility] [address] [place] [address] Assigned Heart and Vascular Provider 12/31/19 04/02/23 [place] [address] [address] Assigned PCP 10/06/21 04/02/23 [place] [address] [place] [address] Assigned PCP 04/03/23 06/30/23 [place] [address] [place] [address] Assigned PCP 07/01/23 documented as of this encounter
--- OUTSIDE RECORDS SUMMARY | 2024-08-31 00:34 | XMS_ITS | Encounter Summary ---
Author Organization [facility] Address [address] [place] [address]. [place] [address] Care Team Providers Care Construction Secretary Name Role Phone Wm Banda MD Primary Care Provider + [phone] Wm Banda MD Unavailable [phone] Wm Banda MD Unavailable [phone] Sangeetha Mishra APRN DRUG SAFETY ASSISTANT Unavailable +[phone] Wm Banda MD Unavailable [phone] Yevgeniy Cervantes MD Unavailable Tamia Szymanski MD Primary Care Provider [phone] Tamia Szymanski MD Unavailable Wm Banda MD Primary Care Provider + [phone] Ashely Bob MD Unavailable [phone] Tamia Szymanski MD Unavailable Encounter Details Date Type Department Care Team (Late st Contact Info) Description 08/24/[address] 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 Not on file Not on file documented as of this encounter Plan of Treatment Not on file documented as of this encounter Visit Diagnoses Not on filedocumented in this encounter Additional Health Concerns Infection Onset Date Last Indicated Resolved Time MRSA-Contact Isolation Comment:Vinh, 08/18/2014 08/22/2014 08/22/2014 documented as of this encounter Care Teams Construction Secretary Relationship Specialty Start Date End Date Wm Banda MD PCP - General Family Practice 10/25/13 09/23/21 [place] [address] [place] [address] PCP - Assigned PCP 05/11/17 05/12/18 [place] [address] [place] [address] PCP - General Family Medicine 09/24/21 11/20/22 [place] [address] [place] [address] PCP - General Family Medicine 11/21/22 [place] [address] [place] [address] Assigned PCP 07/05/18 10/05/21 Sangeetha Mishra APRN DRUG SAFETY ASSISTANT [address] [place] [address] Assigned PCP 06/14/18 07/04/18 [place] [address] [place] [address] Assigned PCP 05/11/17 06/13/18 Yevgeniy Cervantes MD [address] [facility] [address] [place] [address] Assigned Heart and Vascular Provider 12/31/19 04/02/23 [place] [address] [place] [address] Assigned PCP 10/06/21 04/02/23 [place] [address] [place] [address] Assigned PCP 04/03/23 06/30/23 [place] [address] [place] [address] Assigned PCP 07/01/23 documented as of this encounter
--- OUTSIDE RECORDS SUMMARY | 2024-08-31 00:34 | XMS_ITS ---
Author Organization [facility] Address [address] [place] [address] Care Team Providers Care Environmental Permitting Specialist Name Role Phone Wm Banda MD Primary Care Provider + [phone] Tamia Szymanski MD Unavailable Active Problems Patient Care Coordination No te Formatting of this note migh t be different from the original. [email or web address] Problem Noted Date Diagnosed Date Coronary artery disease invo lving [place] coronary artery of [place] heart without angina pectoris 09/22/2019 Elevated coronary artery calcium score 9 Overview (09/07/2018): Added automatically from request for surgery [id number] History of colonic polyps 11/01/2013 Hyperlipidemia LDL [...] (09/07/2018): Added automatically from request for surgery [id number] Elevated blood pressure read ing without diagnosis [...]
--- OUTSIDE RECORDS SUMMARY | 2024-08-31 00:34 | XMS_ITS | Clinical Summary ---
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 [email or web address] Problem Noted Date Diagnosed Date Coronary artery disease invo lving [place] coronary artery of [place] heart without angina pectoris 09/22/2019 Elevated coronary artery calcium score 9 Overview (09/07/2018): Added automatically from request for surgery [id number] History of colonic polyps 11/01/2013 Hyperlipidemia LDL goal <70 11/16/2012 History of prostate cancer 11/16/2012 Gout 09/18/2011 Psoriasis 07/09/2010 Bee sting-induced anaphylaxis 05/12/2009 Resolved Problems Problem Noted Date Diagnosed Date Resolved Date Status post coronary angiogram 09/22/2018 09/22/2019 Atypical chest pain 09/07/2018 09/22/19 20 Overview (09/07/2018): Added automatically from request for surgery [id number] Elevated blood pressure read ing without diagnosis [...] How often do you attend chur or confucianist services? More than 4 times per year 09/24/2021 Do you belong to any clubs o r organizations such as yazidi groups, unions, fraternal or athletic groups, or [...] Answer Date Recorded PHQ-2 Score 0 09/24/2021 [facility] - Occupational Stress Questionnaire Answer Date Recorded [...] place to sleep or slept in a m[facility]p (including now)? 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] LAB - BLOOD ORDERABLES Final Res ult [facility] [address] [facility] (1st floor, no room number) [place] [address], [facility] [phone] from Last 3 Months or Most Recently Relevant to Health Maintenance Additional Health Concerns Infection Onset Date Last Indicated MRSA-Contact Isolation Comment:Vinh, 08/18/2014 08/22/2014 08/22/2014 Insurance [facility] MEDICARE ADVANTAGE Advance Directives For more information, please contact: [phone] Documents on File Type Date Recorded 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
--- OUTSIDE RECORDS SUMMARY | 2024-08-31 00:34 | XMS_ITS | Encounter Summary ---
Author Organization [facility] Address [address] [place] [address] Care Team Providers Care Flagstone Layer Name Role Phone Wm Banda MD Primary Care Provider + [phone] Wm Banda MD Unavailable [phone] Yevgeniy Cervantes MD Unavailable Tamia Szymanski MD Primary Care Provider [phone] Tamia Szymanski MD Unavailable Wm Banda MD Primary Care Provider + [phone] Ashely Bob MD Unavailable [phone] Tamia Szymanski MD Unavailable Encounter Details Date Type Department Care Team (Late st Contact Info) Description 06/15/[address] 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 file Not [...] documented as of this encounter Care Teams Flagstone Layer Relationship Specialty Start Date End Date Wm Banda MD PCP - General Family Practice 10/25/13 09/23/21 [place] [address] [place] [address] PCP - General Family Medicine 09/24/21 11/20/22 [place] [address] [place] [address] PCP - General Family Medicine 11/21/22 [place] [address] [place] [address] Assigned PCP 07/05/18 10/05/21 Yevgeniy Cervantes MD [address] [facility] [address] [place], [place] [address] Assigned Heart and Vascular Provider 12/31/19 04/02/23 [place] [address] [place] [address] Assigned PCP 10/06/21 04/02/23 [place] [address] [place] [address] Assigned PCP 04/03/23 06/30/23 [place] [address] [place] [address] Assigned PCP 07/01/23 documented as of this encounter
--- OUTSIDE RECORDS SUMMARY | 2024-08-31 00:34 | XMS_ITS | Encounter Summary ---
Author Organization [facility] Address [address] [place] [address] Care Team Providers Care Wireworker Name Role Phone Stephen Ureña MD Primary Care Provider Wm Banda MD Primary Care Provider Wm Banda MD Unavailable [phone] Wm Banda MD Unavailable [phone] Sangeetha Mishra APRN [facility] Unavailable [phone] Wm Banda MD Unavailable [phone] Yevgeniy Cervantes MD Unavailable Tamia Szymanski MD Primary Care Provider Tamia Szymanski MD Unavailable Wm Banda MD Primary Care Provider [phone] Ashely Bob MD Unavailable [phone] Tamia Szymanski MD Unavailable Encounter Details Date Type Department Care Team (Late st Contact Info) Description 11/22/2009 MyC Medical Advice [facility] [address] [place] [phone] Stephen Ureña MD [address] [place] [address] Social History Tobacco Use Types Packs/Day Years Used Date Smoking Tobacco: Former Cigarettes Q uit: 03/10/1975 Comments:about 15 pack years hx Alcohol Use Standard Drinks/Week Comments Yes 33.3 (1 standard drink = 0.6 oz pure alcohol) Sex and Gender Information Value Date Recorded Sex Assigned at Not on file 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 Gender Identity Not on file Sexual Orientation Not on file 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 Not on file Not on file documented as of this encounter Plan of Treatment Not on file documented as of this encounter Visit Diagnoses Not on filedocumented in this encounter Additional Health Concerns Infection Onset Date Last Indicated Resolved Time MRSA-Contact Isolation Comment:Vinh, 08/18/2014 08/22/2014 08/22/2014 documented as of this encounter Care Teams Wireworker Relationship Specialty Start Date End Date Stephen Ureña MD PCP - General 11/14/04 10/24/13 Wm Banda MD PCP - General Family Practice 10/25/13 09/23/21 [place] [address] [place] [address] PCP - Assigned PCP 05/11/17 05/12/18 [place] [address] [place] [address] PCP - General Family Medicine 09/24/21 11/20/22 [place] [address] [place] [address] PCP - General Family Medicine 11/21/22 [place] [address] [place] [address] Assigned PCP 07/05/18 10/05/21 Sangeetha Mishra APRN [facility] [address] [place] [address] Assigned PCP 06/14/18 07/04/18 [place] [address] [place] [address] Assigned PCP 05/11/17 06/13/18 Yevgeniy Cervantes MD [address] [facility] [address] [place] [address] Assigned Heart and Vascular Provider 12/31/19 04/02/23 [place] [address] [place] [address] Assigned PCP 10/06/21 04/02/23 [place] [address] [place] [address] Assigned PCP 04/03/23 06/30/23 [place] [address] [place] [address] Assigned PCP 07/01/23 documented as of this encounter
--- OUTSIDE RECORDS SUMMARY | 2024-08-31 00:34 | XMS_ITS | Encounter Summary ---
Author Organization [facility] Address [address] [place] [address]. [place] [address] Care Team Providers Care Transportation Solutions Manager Name Role Phone Wm Banda MD Primary Care Provider + [phone] Wm Banda MD Unavailable [phone] Wm Banda MD Unavailable [phone] Sangeetha Mishra APRN WATER TANKER DRIVER Unavailable [phone] Wm Banda MD Unavailable [phone] Yevgeniy Cervantes MD Unavailable Tamia Szymanski MD Primary Care Provider [phone] Tamia Szymanski MD Unavailable Wm Banda MD Primary Care Provider + [phone] Ashely Bob MD Unavailable [phone] Tamia Szymanski MD Unavailable Reason for Visit * Reason Onset Date Comments MyChart Communication 12/05/2014 Encounter Details Date Type Department Care Team (Latest Contact Info) Description 12/05/2014 [facility] [address] [address] Sherron Rojas APRN WATER TANKER DRIVER [address] [place] [address] MyChart Communication Social History Tobacco Use Types Packs/Day Years Used Date Smoking Tobacco: Former Cigarettes Q uit: 03/10/1975 Smokeless Tobacco: Never Comments:about 15 pack years hx Alcohol Use Standard Drinks/Week Comments Yes 11.7 (1 standard drink = 0.6 oz pure alcohol) Sex and Gender Information Value Date Recorded Sex Assigned at Not on file 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 Gender Identity Not on file Sexual Orientation Not on file 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 Not on file Not [...] documented as of this encounter Care Teams Transportation Solutions Manager Relationship Specialty Start Date End Date Wm Banda MD PCP - General Family Practice 10/25/13 09/23/21 [place] [address] [place] [address] PCP - Assigned PCP 05/11/17 05/12/18 [place] [address] [place] [address] PCP - General Family Medicine 09/24/21 11/20/22 [place] [address] [place] [address] PCP - General Family Medicine 11/21/22 [place] [address] [place] [address] Assigned PCP 07/05/18 10/05/21 Sangeetha Mishra APRN [facility] [address] [place] [address] Assigned PCP 06/14/18 07/04/18 [place] [address] [place] [address] Assigned PCP 05/11/17 06/13/18 Yevgeniy Cervantes MD [address] [place] [address] [place] [address] Assigned Heart and Vascular Provider 12/31/19 04/02/23 [place] [address] [place] [address] Assigned PCP 10/06/21 04/02/23 [place] [address] [place] [address] Assigned PCP 04/03/23 06/30/23 [place] [address] [place] [address] Assigned PCP 07/01/23 documented as of this encounter
--- OUTSIDE RECORDS SUMMARY | 2024-08-31 00:34 | XMS_ITS | Encounter Summary ---
Author Organization [facility] Address [address] [place] [address] Care Team Providers Care Retort Operator Name Role Phone Wm Banda MD Primary Care Provider + [phone] Wm Banda MD Unavailable [phone] Wm Banda MD Unavailable [phone] Sangeetha Mishra APRN [facility] Unavailable [phone] Wm Banda MD Unavailable [phone] Yevgeniy Cervantes MD Unavailable Tamia Szymanski MD Primary Care Provider Tamia Szymanski MD Unavailable Wm Banda MD Primary Care Provider + [phone] Ashely Bob MD Unavailable [phone] Tamia Szymanski MD Unavailable Encounter Details Date Type Department Care Team (Late st Contact Info) Description 12/03/2013 MyC Medical Advice [facility] [address] [place] [address] [place] [address] [facility] [place] [address] Social History Tobacco Use Types Packs/Day Years Used Date Smoking Tobacco: Former Cigarettes Q uit: 03/10/1975 Smokeless Tobacco: Never Comments:about 15 pack years hx Alcohol Use Standard Drinks/Week Comments Yes 11.7 (1 standard drink = 0.6 oz pure alcohol) Sex and Gender Information Value Date Recorded Sex Assigned at Not on file 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 Gender Identity Not on file Sexual Orientation Not on file 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 Not on file documented as of this encounter Plan of Treatment Not on file documented as of this encounter Visit Diagnoses Not on filedocumented in this encounter Additional Health Concerns Infection Onset Date Last Indicated Resolved Time MRSA-Contact Isolation Comment:Vinh, 08/18/2014 08/22/2014 08/22/2014 documented as of this encounter Care Teams Retort Operator Relationship Specialty Start Date End Date Wm Banda MD PCP - General Family Practice 10/25/13 09/23/21 [place] [address] [place] [address] PCP - Assigned PCP 05/11/17 05/12/18 [place] [address] [place] [address] PCP - General Family Medicine 09/24/21 11/20/22 [place] [address] [place] [address] PCP - General Family Medicine 11/21/22 [place] [address] [place] [address] Assigned PCP 07/05/18 10/05/21 Sangeetha Mishra APRN LAY UPS ASSEMBLER [address] [place] [address] Assigned PCP 06/14/18 07/04/18 [place] [address] [place] [address] Assigned PCP 05/11/17 06/13/18 Yevgeniy Cervantes MD [address] [facility] [facility] [address] [place] [address] Assigned Heart and Vascular Provider 12/31/19 04/02/23 [place] [address] [place] [address] Assigned PCP 10/06/21 04/02/23 [place] [address] [place] [address] Assigned PCP 04/03/23 06/30/23 [place] [address] [place] [address] Assigned PCP 07/01/23 documented as of this encounter
== END 2024-08-29 11:46 | disposition home or self-care (01) ==
LOC: AMB 08-30 12:43
PROVIDERS: PCP Family Medicine; Visit Provider Family Medicine
DX: I20.0 Unstable angina (principal)
CPT/HCPCS: A0425; A0434